=== PATIENT | female | born 1940 | race Caucasian/White ===

== ENCOUNTER → 2017-07-27 11:02 | Outpatient (CLI) | payer MEDICARE, OTHER, SELFPAY ==
--- NOTE | 2017-07-27 | DI.US.S_ITS ---
PROCEDURE: US THYROID INDICATIONS: left thyroid nodule follow up TECHNIQUE: Real-time scanning was performed of the thyroid gland, with image documentation. COMPARISON: [facility], US, US GUIDED BX THYROID (FNA), 08/30/2016, 13:06. [facility], US, THYROID, 07/19/2016, 15:54. FINDINGS: Right: Thyroid lobe measures 3.9 x 1.3 1.1 cm, and is homogeneous in echotexture. Left: Thyroid lobe measures 5.0 x 2.3 x 2.4 cm, and is homogenous in echotexture. Isthmus: 2.0 mm thick. Nodule number: 1 Location: Right superior Size: 0.7 0.5 x 0.6 cm. Composition: Solid Echogenicity: Hypoechoic Shape: wider than tall. Margins: Smooth Echogenic foci: None Total points: 4 ACR TI-RADS category: Moderately suspicious Nodule number: 2 Location: Right inferior Size: 1.2 x 0.7 x 0.9 cm increased in size from prior exam. Composition: Solid Echogenicity: Hypoechoic Shape: Taller than wide Margins: Smooth Echogenic foci: None Total points: 7 ACR TI-RADS category: Highly suspicious Nodule number: 3 Location: Left superior Size: 0.7 x 0.5 x 1.2 cm. Composition: Solid Echogenicity: Isoechoic Shape: wider than tall. Margins: Smooth Echogenic foci: None Total points: 4 ACR TI-RADS category: Moderately suspicious Nodule number 4 Location: Left inferior Size: Unchanged measuring 2.6 x 2.3 x 3.8 cm Composition: Solid Echogenicity: Hypoechoic Shape: wider than tall. Margins: Smooth Echogenic foci: None Total points: 4 ACR TI-RADS category: Moderately suspicious IMPRESSION: Interval increase in size of the # 2 nodule within the right inferior thyroid which is highly suspicious given the sonographic characteristics. Recommend sonographically directed fine needle aspiration. Stable appearance of the additional nodules and a new subcentimeter nodule within the right thyroid is present. Continued sonographic followup recommended. ACR TI-RADS definitions and recommendations: TI-RADS 1 (benign): 0 points. FNA not needed. TI-RADS 2 (not suspicious): 2 points. FNA not needed. TI-RADS 3 (mildly suspicious): 3 points. * FNA if 2.5 cm or larger, follow up if 1.5 cm or larger (at 1, 3, and 5 years). TI-RADS 4 (moderately suspicious): 4-6 points. * FNA if 1.5 cm or larger, follow up if 1 cm or larger (at 1, 2, 3, and 5 years). TI-RADS 5 (highly suspicious): 7 points or more. * FNA if 1 cm or larger, follow up if 0.5 cm or larger (every year for 5 years). Dictated by: Saud Lora [facility] Interpreted: Domenico Griffith MD on 07/27/2017 at 15:40 Approved by: Domenico Griffith M.D. on 07/27/2017 at 16:43
== END ==
PROVIDERS: PCP Family Medicine; Visit Provider Family Medicine
DX: E04.2 Nontoxic multinodular goiter (principal)
CPT/HCPCS: 76536

== ENCOUNTER → 2017-08-15 13:46 | Outpatient (CLI) | payer MEDICARE, OTHER, SELFPAY ==
--- NOTE | 2017-08-15 | DI.US.S_ITS ---
PROCEDURE: US FINE NEEDLE ASPIRATION INDICATIONS: highly suspicious thyroid nodule TECHNIQUE: The indications, alternatives, benefits, risks, and complications of the procedure were explained to the patient. Written informed consent was obtained and placed in the chart. The thyroid region was examined sonographically and a site was chosen for ultrasound guided percutaneous sampling. The skin was prepared and draped in the usual fashion, and anesthetized with 1% lidocaine infiltrated from the skin down to the thyroid gland. Multiple passes were then performed, with contents emptied into an appropriate pathology specimen container. A bandage was applied to the area of access at completion of the study. COMPARISON: None. FINDINGS: Location(s) of lesion(s) sampled: Lower pole right lobe of thyroid [place]: 5 number 25 gauge hypodermic needles and 2 #22 gauge needles. Number of passes: 7 Medications: 1% lidocaine for local anaesthesia. Complications: None. IMPRESSION: Successful ultrasound-guided thyroid nodule fine needle aspiration, with cytology results pending. Please see chart below for management recommendations based on cytology results. Dresser System ReportingRecommendationsNon-diagnostic* Repeat US-guided FNA, with on-site cytology evaluation if possible. * Repeated non-diagnostic nodules without high suspicion US features: close observation vs surgical consult. * Consider surgery if nodule has high suspicion US features, grows >20% in 2 dimensions on followup, or patient has clinical risk factors for malignancy. Benign* If nodule has high suspicion US features: repeat US and FNA within 12 months. * If nodule has low to intermediate suspicion US features: repeat US at 12-24 months. If nodule grows (20% increase in at least 2 dimensions, with minimal increase of 2 mm or >50% change in volume), or development of new suspicious US features, then repeat FNA or continue followup. * If nodule has very low suspicion US features: followup US at >24 months. Atypia of undetermined significance, follicular lesion of undetermined significanceRepeat FNA, molecular testing, followup US, or surgical consult.Follicular neoplasm, suspicious for follicular neoplasmSurgical consult; also consider molecular testing. Suspicious for malignancySurgical consult.MalignantSurgical consult. Dictated by: Bhanu Sadler M.D. on 08/15/2017 at 15:29 Approved by: Bhanu Sadler M.D. on 08/15/2017 at 15:33
--- NOTE | 2017-08-15 | PATH_ITS ---
Note [facility] Accession Number: [id number] TESTS RESULT FLAG UNITS REF RANGE LAB Clinician Provided Cytology Information No. of containers..01 ThinPrep Vial No. of containers..10 Previously Prepared Cytology Slide RIGHT THYROID NODULE DIAGNOSIS: RIGHT THYROID NODULE: BENIGN. BETHESDA CATEGORY II. SPECIMEN CONSISTS OF BENIGN FOLLICULAR CELLS, HEMOSIDERIN-LADEN MACROPHAGES, COLLOID, AND BLOOD. THIS PATTERN IS CONSISTENT WITH A BENIGN FOLLICULAR NODULE. Pathologist ICD10: 02 E04.1 Brenda Pope MD, Pathologist NPI- [id number] Aric Mcqueen, Renal Social Worker ([facility]) 01 30 CC, PINK, CLEAR RECEIVED: 5 ALCOHOL FIXED AND 5 QUICK STAINED SLIDES. /VDU FLAG LEGEND: L-Low Normal,H-High Normal,LL-Alert Low,HH-Alert High <-Panic Low,>-Panic High,A-Abnormal,AA-Critical Abnormal Performed at: 01 =Z [facility] [address], [place] [address] Ryland Kwan MD, 02 [facility] [address] [place] [id number] Jerrod Miller MD, Performed at: 01 [facility] [address], [place], [place] [id number] MD Ryland Kwan MD Phone: [phone]
== END ==
PROVIDERS: Family Provider Family Medicine; PCP Family Medicine; Visit Provider Family Medicine
DX: E04.1 Nontoxic single thyroid nodule (principal)
CPT/HCPCS: 10022; 76942

== ENCOUNTER 2017-09-12 09:45 | Outpatient (RCR) | payer MEDICARE, OTHER, SELFPAY ==
--- NOTE | 2017-06-30 11:02 | PT.OTN ---
Current Diagnoses Weakness (06/30/17) Strain of muscle(s) and tendon(s) of the rotator cuff of left shoulder, initial encounter (06/30/17) Transition note: On June 28, 2017 our therapy services consisting of Speech, Occupational, and Physical Therapy transitioned from the [employer] electronic documentation system to a new [employer] electronic documentation system.?? All documentation prior to June 28 can be found under [employer] saved data. From June 28 forward all medical record documentation will be in [employer] 6.1.
--- NOTE | 2017-06-30 17:42 | PT.OTN ---
Current Diagnoses Weakness (06/30/17) Strain of muscle(s) and tendon(s) of the rotator cuff of left shoulder, initial encounter (06/30/17) Physical Therapy Treatment Note PT-OP-A Visit Information Start: 06/30/17 08:07 Freq: Status: Active Protocol: Activity Type Activity Date Activity User E-Sign Co-Sign Detail Recorded Client Recorded Date Recorded By Document 06/30/17 17:36 [facility] [id number] 06/30/17 17:37 [facility] 06/30/17 17:36 Out-Patient Physical Therapy Visit Information [Visit Information] -Visit Type Treatment Note -Visit Start Time 09:00 -Visit Stop Time 10:00 -Total Visit Minutes 60 -Visit Number 3 -Number of ECONOMICS LECTURER Visits 0 PT-OP-C Subjective Start: 06/30/17 08:07 Freq: Status: Active Protocol: Activity Type Activity Date Activity User E-Sign Co-Sign Detail Recorded Client Recorded Date Recorded By Document 06/30/17 09:01 [facility] [id number] 06/30/17 09:26 [facility] 06/30/17 09:01 OP-PT Subjective [Patient Comments] -Patient Comments shoulder pain for rest of day after first treatment session, though neck pain better with now no pain down UE. OP-PT Pain Assessment [Home Pain Medication Use] -Pain Medications Used Yes -Home Pain Medication Frequency occasional; took after last session PT-OP-Q Treatments Start: 06/30/17 08:07 Freq: Status: Active Protocol: Activity Type Activity Date Activity User E-Sign Co-Sign Detail Recorded Client Recorded Date Recorded By Document 06/30/17 10:58 [facility] [id number] 06/30/17 11:03 [facility] 06/30/17 10:58 Therapeutic Exercises [Sitting Exercises] 1 -Sitting Exercise Name pulleys for shoulder flex and ab -Side left -Reps/Minutes 20x [Standing Exercises] 3 -Standing Exercise Name UT and levator stretch -Reps/Minutes 2x ea 2 -Standing Exercise Name postural isometric, -Side bilateral -Equipment Used wall -Reps/Minutes 5x 1 -Standing Exercise Name rows, shld ext, shld ER -Side bilateral -Equipment Used L1 TB -Reps/Minutes 10x ea -Comments manual cues for scapular mobility and stabilization Manual Therapy Treatment [Soft Tissue Mobilization] 1 -Body Location c/s, UT -Mobilization Type Rolling -Intensity/Depth Moderate -Body Position Supine Self-Care/Home Management Treatment [Education] -Patient Education Home Exercise Program -Other Education updated PT-OP-R Modalities Start: 06/30/17 08:07 Freq: Status: Active Protocol: Activity Type Activity Date Activity User E-Sign Co-Sign Detail Recorded Client Recorded Date Recorded By Document 06/30/17 17:33 [facility] [id number] 06/30/17 17:35 [facility] 06/30/17 17:33 Electric Stimulation [Electric Stimulation] Interferential Current (IFC) -Body Location left shoulder -Duration (Minutes) 15 -Target/Sweep Sweep -Patient Position Supine -Combined With Heat/Cold Cold Pack Ultrasound Therapy [Treatment] Left Shoulder -Treatment Duration (minutes) 8 -Patient Position Supine -Coupling Medium Ultrasound Gel -Mode Setting Continuous -Intensity Setting (w/cm2) 1.2 -Patient Tolerance Good PT-OP-T Assessment and Plan Start: 06/30/17 08:07 Freq: Status: Active Protocol: Activity Type Activity Date Activity User E-Sign Co-Sign Detail Recorded Client Recorded Date Recorded By Document 06/30/17 17:36 [facility] [id number] 06/30/17 17:37 [facility] 06/30/17 17:36 Physical Therapy Assessment [Progress Towards Goals] -Progress Towards Goals Progressing Toward Goals Physical Therapy Plan [Next Visit Focus/Plan] -Next Visit Plan Progression of ther ex for ROM and strengthening left shoulder as tolerated, manual therapy and modalities for ROM, joint mobility, and pain management .
--- NOTE | 2017-07-04 15:40 | PT.OTN ---
Current Diagnoses Weakness (07/04/17) Strain of muscle(s) and tendon(s) of the rotator cuff of left shoulder, initial encounter (07/04/17) Physical Therapy Treatment Note PT-OP-A Visit Information Start: 06/30/17 08:07 Freq: Status: Active Protocol: Activity Type Activity Date Activity User E-Sign Co-Sign Detail Recorded Client Recorded Date Recorded By Document 07/04/17 14:37 [facility] [id number] 07/04/17 14:37 [facility] 07/04/17 14:37 Out-Patient Physical Therapy Visit Information [Visit Information] -Visit Type Treatment Note -Visit Start Time 08:15 -Visit Stop Time 09:10 -Total Visit Minutes 55 -Visit Number 4 -Number of FORMULATOR COMPOUNDER Visits 0 PT-OP-C Subjective Start: 06/30/17 08:07 Freq: Status: Active Protocol: Activity Type Activity Date Activity User E-Sign Co-Sign Detail Recorded Client Recorded Date Recorded By Document 07/04/17 08:15 [facility] [id number] 07/04/17 08:20 [facility] 07/04/17 08:15 OP-PT Subjective [Patient Comments] -Patient Comments Tired and sore after PT. PT-OP-Q Treatments Start: 06/30/17 08:07 Freq: Status: Active Protocol: Activity Type Activity Date Activity User E-Sign Co-Sign Detail Recorded Client Recorded Date Recorded By Document 07/04/17 08:23 [facility] [id number] 07/04/17 09:08 [facility] 07/04/17 08:23 Therapeutic Exercises [Supine Exercises] 1 -Supine Exercise Name should ER/IR AAROM -Reps/Minutes 10x [Prone Exercises] 1 -Prone Exercise Name shoulder flex, chest press, serratus punch -Equipment Used wand -Reps/Minutes 10x -Comments supine [Sidelying Exercises] 1 -Sidelying Exercise Name reach and roll with manual overpressure -Comments painful left [Sitting Exercises] 1 -Sitting Exercise Name pulleys for shoulder flex and ab -Side left -Reps/Minutes 20x [Standing Exercises] 3 -Standing Exercise Name UT and levator stretch -Reps/Minutes 2x ea 1 -Standing Exercise Name rows, shld ext, shld ER, shld add -Side bilateral -Equipment Used L1 TB -Reps/Minutes 10x ea -Comments manual cues for scapular mobility and stabilization Manual Therapy Treatment [Manual Techniques] 2 -Body Location Inf and post glide GH -Body Position Supine -Reps/Duration 5 min 1 -Type STM c/s, upper traps, levator, rhomboids -Body Position Supine -Reps/Duration 6 min PT-OP-R Modalities Start: 06/30/17 08:07 Freq: Status: Active Protocol: Activity Type Activity Date Activity User E-Sign Co-Sign Detail Recorded Client Recorded Date Recorded By Document 07/04/17 15:35 [facility] [id number] 07/04/17 15:37 [facility] 07/04/17 15:35 Electric Stimulation [Electric Stimulation] Interferential Current (IFC) -Body Location left shoulder -Duration (Minutes) 15 -Target/Sweep Sweep -Patient Position Supine -Combined With Heat/Cold Hot Pack -Comments Moist heat c/s, left shoulder PT-OP-T Assessment and Plan Start: 06/30/17 08:07 Freq: Status: Active Protocol: Activity Type Activity Date Activity User E-Sign Co-Sign Detail Recorded Client Recorded Date Recorded By Document 07/04/17 15:38 [facility] [id number] 07/04/17 15:39 [facility] 07/04/17 15:38 Physical Therapy Assessment [Progress Towards Goals] -Progress Towards Goals Progressing Toward Goals -Progress Comments Compliant to HEP. Improved shoulder ER ROM . Progressed HEP. Physical Therapy Plan [Next Visit Focus/Plan] -Next Visit Plan Continue PT with emphasis on pain management, gentle RC strengthening, manual techniques.
--- NOTE | 2017-07-08 16:13 | PT.OTN ---
Current Diagnoses Weakness (07/11/17) Strain of muscle(s) and tendon(s) of the rotator cuff of left shoulder, initial encounter (07/11/17) Physical Therapy Treatment Note PT-OP-A Visit Information Start: 06/30/17 08:07 Freq: Status: Active Protocol: Document 07/08/17 16:15 [facility] (Rec: 07/11/17 14:29 [facility] [id number]) Out-Patient Physical Therapy Visit Information Visit Information Visit Start Time 15:15 Visit Stop Time 16:15 Total Visit Minutes 60 Visit Number 5 Number of SALES EXHIBITOR Visits 0 PT-OP-C Subjective Start: 06/30/17 08:07 Freq: Status: Active Protocol: Document 07/08/17 16:15 [facility] (Rec: 07/11/17 14:29 [facility] [id number]) OP-PT Subjective Patient Comments Patient Comments Overall improving, though c/o left sided neck tightness PT-OP-Q Treatments Start: 06/30/17 08:07 Freq: Status: Active Protocol: Document 07/08/17 16:15 [facility] (Rec: 07/11/17 14:29 [facility] [id number]) Therapeutic Exercises Supine Exercises 3 Supine Exercise Name shoulder ER AAROM 2 Supine Exercise Name serratus punch 1 Supine Exercise Name chest press with wand Side bilateral Reps/Minutes 10x Sidelying Exercises 2 Sidelying Exercise Name shoulder abd 1 Sidelying Exercise Name reach and roll Reps/Minutes 5x Sitting Exercises 1 Sitting Exercise Name pulleys for shoulder flex and abd Reps/Minutes 5' Standing Exercises 2 Standing Exercise Name shoulder ext, row, shld IR, ER Equipment Used L1 TB Reps/Minutes 10 Manual Therapy Treatment Soft Tissue Mobilization 1 Body Location left GH joint, scapular region Mobilization Type Strumming Intensity/Depth Moderate Body Position Supine Joint Mobilizations 2 Joint scapular med and lateral glide Grade II Body Position Sidelying 1 Joint GH inf glide, post glide Grade II Body Position Supine Taping 1 Body Location left upper trap for inhibition Type of Tape Kinesio Tape Manual Techniques 1 Type STM Body Location cervical spine, GH joint, scapulothoracic joint Body Position supine and sidelying Reps/Duration 12 min PT-OP-R Modalities Start: 06/30/17 08:07 Freq: Status: Active Protocol: Document 07/08/17 16:15 [facility]AK (Rec: 07/11/17 14:29 [facility] [id number]) Electric Stimulation Electric Stimulation Interferential Current (IFC) Body Location left shoulder Duration (Minutes) 15 Target/Sweep Sweep Patient Position Supine Combined With Heat/Cold Hot Pack Comments Moist heat c/s, left shoulder Ultrasound Therapy Treatment Left Shoulder Treatment Duration (minutes) 8 Patient Position Supine Coupling Medium Ultrasound Gel Frequency Setting (mHz) 1 Mode Setting Continuous Intensity Setting (w/cm2) 1.2 Patient Tolerance Good PT-OP-T Assessment and Plan Start: 06/30/17 08:07 Freq: Status: Active Protocol: Document 07/08/17 16:15 [facility] (Rec: 07/11/17 14:29 [facility] [id number]) Physical Therapy Assessment Progress Towards Goals Progress Towards Goals Progressing Toward Goals Assessment Summary Assessment Good progress, increased exercise and activity tolerance Physical Therapy Plan Next Visit Focus/Plan Next Visit Plan Progression of PT with emphasis on pain management, gentle RC strengthening, manual techniques.
--- NOTE | 2017-07-11 15:19 | PT.OTN ---
Current Diagnoses Weakness (07/11/17) Strain of muscle(s) and tendon(s) of the rotator cuff of left shoulder, initial encounter (07/11/17) Physical Therapy Treatment Note PT-OP-A Visit Information Start: 06/30/17 08:07 Freq: Status: Active Protocol: Document 07/08/17 16:15 [facility]AK (Rec: 07/11/17 14:29 [facility] [id number]) Out-Patient Physical Therapy Visit Information Visit Information Visit Start Time 15:15 Visit Stop Time 16:15 Total Visit Minutes 60 Visit Number 5 Number of EVENT PRODUCER Visits 0 PT-OP-C Subjective Start: 06/30/17 08:07 Freq: Status: Active Protocol: Document 07/08/17 16:15 [facility]AK (Rec: 07/11/17 14:29 [facility] [id number]) OP-PT Subjective Patient Comments Patient Comments Overall improving, though c/o left sided neck tightness PT-OP-Q Treatments Start: 06/30/17 08:07 Freq: Status: Active Protocol: Document 07/08/17 16:15 [facility] (Rec: 07/11/17 14:29 [facility] [id number]) Manual Therapy Treatment Manual Techniques 1 Type STM Body Location cervical spine, GH joint, scapulothoracic joint Body Position supine and sidelying Reps/Duration 12 min PT-OP-R Modalities Start: 06/30/17 08:07 Freq: Status: Active Protocol: Document 07/08/17 16:15 [facility] (Rec: 07/11/17 14:29 [facility] [id number]) Electric Stimulation Electric Stimulation Interferential Current (IFC) Body Location left shoulder Duration (Minutes) 15 Target/Sweep Sweep Patient Position Supine Combined With Heat/Cold Hot Pack Comments Moist heat c/s, left shoulder Ultrasound Therapy Treatment Left Shoulder Treatment Duration (minutes) 8 Patient Position Supine Coupling Medium Ultrasound Gel Frequency Setting (mHz) 1 Mode Setting Continuous Intensity Setting (w/cm2) 1.2 Patient Tolerance Good PT-OP-T Assessment and Plan Start: 06/30/17 08:07 Freq: Status: Active Protocol: Document 07/08/17 16:15 [facility] (Rec: 07/11/17 14:29 [facility] [id number]) Physical Therapy Plan Next Visit Focus/Plan Next Visit Plan Progression of PT with emphasis on pain management, gentle RC strengthening, manual techniques.
--- NOTE | 2017-07-11 16:23 | PT.OTN ---
Current Diagnoses Weakness (07/11/17) Strain of muscle(s) and tendon(s) of the rotator cuff of left shoulder, initial encounter (07/11/17) Physical Therapy Treatment Note PT-OP-A Visit Information Start: 06/30/17 08:07 Freq: Status: Active Protocol: Document 07/11/17 16:15 [facility] (Rec: 07/11/17 16:23 [facility] [id number]) Out-Patient Physical Therapy Visit Information Visit Information Visit Start Time 15:15 Visit Stop Time 16:15 Total Visit Minutes 60 Visit Number 6 Number of IMPROVEMENT LEADER Visits 0 PT-OP-C Subjective Start: 06/30/17 08:07 Freq: Status: Active Protocol: Document 07/11/17 16:15 [facility] (Rec: 07/11/17 16:23 [facility] [id number]) OP-PT Subjective Patient Comments Patient Comments Reports was sore after last PT session, requests ice after PT today. REport she feels she is progressing. PT-OP-Q Treatments Start: 06/30/17 08:07 Freq: Status: Active Protocol: Document 07/11/17 16:15 [facility] (Rec: 07/11/17 16:23 [facility] [id number]) Therapeutic Exercises Supine Exercises 3 Supine Exercise Name shoulder ER AAROM 2 Supine Exercise Name serratus punch 1 Supine Exercise Name chest press with wand Side bilateral Reps/Minutes 10x Sidelying Exercises 2 Sidelying Exercise Name shoulder abd Side bilateral Reps/Minutes 5x Comments AAROM 1 Sidelying Exercise Name reach and roll Reps/Minutes 5x Sitting Exercises 1 Sitting Exercise Name pulleys for shoulder flex and abd Reps/Minutes 5' Standing Exercises 2 Standing Exercise Name shoulder ext, row, shld IR, ER Equipment Used L2 TB Reps/Minutes 10 1 Standing Exercise Name postural isometric Reps/Minutes 5x Manual Therapy Treatment Soft Tissue Mobilization 1 Body Location left GH joint, scapular region Mobilization Type Strumming Intensity/Depth Moderate Body Position Supine Joint Mobilizations 2 Joint scapular med and lateral glide Grade II Body Position Sidelying 1 Joint GH inf glide, post glide Grade II Body Position Supine Taping 1 Comments refused today Manual Techniques 1 Type STM Body Location cervical spine, GH joint, scapulothoracic joint Body Position supine and sidelying Reps/Duration 12 min PT-OP-R Modalities Start: 06/30/17 08:07 Freq: Status: Active Protocol: Document 07/11/17 16:15 [facility] (Rec: 07/11/17 16:23 [facility] [id number]) Electric Stimulation Electric Stimulation Interferential Current (IFC) Body Location left shoulder Duration (Minutes) 15 Target/Sweep Sweep Patient Position Supine Combined With Heat/Cold Cold Pack Ultrasound Therapy Treatment Left Shoulder Treatment Duration (minutes) 8 Patient Position Supine Coupling Medium Ultrasound Gel Frequency Setting (mHz) 1 Mode Setting Continuous Intensity Setting (w/cm2) 1.2 Patient Tolerance Good PT-OP-T Assessment and Plan Start: 06/30/17 08:07 Freq: Status: Active Protocol: Document 07/11/17 16:15 [facility] (Rec: 07/11/17 16:23 [facility] [id number]) Physical Therapy Assessment Assessment Summary Assessment Increased left shoulder ER to 20 deg AAROM from 0 at eval. Improving pain level and activity tolerance left shoulder. Physical Therapy Plan Frequency and Duration Frequency of Treatment 2x/Week Duration of Treatment 3 months Plan of Care Start Date 06/16/17 Plan of Care End Date 09/14/17 Next Visit Focus/Plan Next Visit Plan Add sidelying shoulder ER, emphasis on preventing compensatory movements with active shoulder use.
--- NOTE | 2017-07-19 16:28 | PT.OTN ---
Current Diagnoses Weakness (07/19/17) Strain of muscle(s) and tendon(s) of the rotator cuff of left shoulder, initial encounter (07/19/17) Physical Therapy Treatment Note PT-OP-A Visit Information Start: 06/30/17 08:07 Freq: Status: Active Protocol: Document 07/19/17 15:15 [facility] (Rec: 07/19/17 16:28 [facility] [id number]) Out-Patient Physical Therapy Visit Information Visit Information Visit Type Treatment Note Visit Start Time 15:15 Visit Stop Time 16:15 Total Visit Minutes 60 Visit Number 7/10 Number of MOLDER BENCH Visits 0 PT-OP-C Subjective Start: 06/30/17 08:07 Freq: Status: Active Protocol: Document 07/19/17 15:15 [facility] (Rec: 07/19/17 16:28 [facility] [id number]) OP-PT Subjective Patient Comments Patient Comments Pain decreased; I feel like I 've made a lot of progress. PT-OP-Q Treatments Start: 06/30/17 08:07 Freq: Status: Active Protocol: Document 07/19/17 15:15 [facility] (Rec: 07/19/17 16:28 [facility] [id number]) Therapeutic Exercises Supine Exercises 3 Supine Exercise Name shoulder ER AAROM 2 Supine Exercise Name serratus punch 1 Supine Exercise Name chest press with wand Side bilateral Reps/Minutes 10x Sidelying Exercises 2 Sidelying Exercise Name shoulder abd Side bilateral Reps/Minutes 5x Comments AAROM 1 Sidelying Exercise Name reach and roll Reps/Minutes 5x Sitting Exercises 2 Sitting Exercise Name lat pull Side bilateral Resistance 10 1 Sitting Exercise Name pulleys for shoulder flex and abd Reps/Minutes 5' Standing Exercises 1 Standing Exercise Name postural isometric Reps/Minutes 5x Manual Therapy Treatment Joint Mobilizations 2 Joint scapular med and lateral glide Grade II Body Position Sidelying 1 Joint GH inf glide, post glide Grade II Body Position Supine PT-OP-R Modalities Start: 06/30/17 08:07 Freq: Status: Active Protocol: Document 07/19/17 15:15 [facility] (Rec: 07/19/17 16:28 [facility] [id number]) Electric Stimulation Electric Stimulation Interferential Current (IFC) Body Location left shoulder Duration (Minutes) 15 Target/Sweep Sweep Patient Position Supine Combined With Heat/Cold Hot Pack Ultrasound Therapy Treatment Left Shoulder Treatment Duration (minutes) 8 Patient Position Supine Coupling Medium Ultrasound Gel Frequency Setting (mHz) 1 Mode Setting Continuous Intensity Setting (w/cm2) 1.2 Patient Tolerance Good PT-OP-T Assessment and Plan Start: 06/30/17 08:07 Freq: Status: Active Protocol: Document 07/19/17 15:15 [facility] (Rec: 07/19/17 16:28 [facility] [id number]) Physical Therapy Assessment Progress Towards Goals Progress Towards Goals Progressing Toward Goals Assessment Summary Assessment shoulder ER AAROm 25 today. Physical Therapy Plan Frequency and Duration Frequency of Treatment 2x/Week Duration of Treatment 3 months Plan of Care Start Date 06/16/17 Next Visit Focus/Plan Next Visit Plan Add sidelying shoulder ER, emphasis on preventing compensatory movements with active shoulder use. Please Sign and Return: I have reviewed this Plan of Care and certify that the skilled therapy services above are required to meet the patient???s needs. Physician Signature Date Printed Name and Credentials Clinical Instructor Signature Printed Name and Credentials
--- NOTE | 2017-07-22 16:03 | PT.OTN ---
Current Diagnoses Weakness (07/22/17) Strain of muscle(s) and tendon(s) of the rotator cuff of left shoulder, initial encounter (07/22/17) Physical Therapy Treatment Note PT-OP-A Visit Information Start: 06/30/17 08:07 Freq: Status: Active Protocol: Document 07/22/17 08:14 [facility] (Rec: 07/22/17 09:05 [facility] [id number]) Out-Patient Physical Therapy Visit Information Visit Information Visit Type Treatment Note Visit Start Time 08:14 Visit Stop Time 09:14 Total Visit Minutes 60 Visit Number 8/10 Number of ICU NURSE Visits 0 PT-OP-C Subjective Start: 06/30/17 08:07 Freq: Status: Active Protocol: Document 07/22/17 08:14 [facility] (Rec: 07/22/17 09:05 [facility] [id number]) OP-PT Subjective Patient Comments Patient Comments Tired but no increase in pain PT-OP-Q Treatments Start: 06/30/17 08:07 Freq: Status: Active Protocol: Document 07/22/17 08:14 [facility] (Rec: 07/22/17 09:05 [facility] [id number]) Cardio Equipment Upper Body Ergometer (UBE) Duration (Minutes) 4 RPM 120 Therapeutic Exercises Supine Exercises 3 Supine Exercise Name shoulder ER AAROM Reps/Minutes 3 min 2 Supine Exercise Name serratus punch Reps/Minutes 10 1 Supine Exercise Name chest press with wand Side bilateral Reps/Minutes 10x Sidelying Exercises 3 Sidelying Exercise Name scapular clocks with MR Reps/Minutes 10 2 Sidelying Exercise Name shoulder abd Side bilateral Reps/Minutes 5x Comments AAROM 1 Sidelying Exercise Name reach and roll Reps/Minutes 5x Sitting Exercises 2 Sitting Exercise Name lat pull Side bilateral Resistance 10 1 Sitting Exercise Name pulleys for shoulder flex and abd Reps/Minutes 5' Manual Therapy Treatment Soft Tissue Mobilization 1 Body Location left GH joint, scapular region Mobilization Type Strumming Intensity/Depth Moderate Body Position Supine Joint Mobilizations 2 Joint scapular med and lateral glide Grade II Body Position Sidelying PT-OP-R Modalities Start: 06/30/17 08:07 Freq: Status: Active Protocol: Document 07/22/17 08:14 [facility] (Rec: 07/22/17 16:03 [facility] [id number]) Electric Stimulation Electric Stimulation Interferential Current (IFC) Body Location left shoulder Duration (Minutes) 15 Target/Sweep Sweep Patient Position Supine Combined With Heat/Cold Hot Pack Ultrasound Therapy Treatment Left Shoulder Treatment Duration (minutes) 8 Patient Position Supine Coupling Medium Ultrasound Gel Frequency Setting (mHz) 1 Mode Setting Continuous Intensity Setting (w/cm2) 1.2 Patient Tolerance Good PT-OP-T Assessment and Plan Start: 06/30/17 08:07 Freq: Status: Active Protocol: Document 07/22/17 08:14 [facility] (Rec: 07/22/17 16:03 [facility] [id number]) Physical Therapy Assessment Progress Towards Goals Progress Towards Goals Progressing Toward Goals Assessment Summary Assessment ER AAROM 29 Physical Therapy Plan Frequency and Duration Frequency of Treatment 2x/Week Duration of Treatment 3 months Plan of Care Start Date 06/16/17 Plan of Care End Date 09/14/17 Next Visit Focus/Plan Next Note Type Treatment Note Next Visit Plan Add sidelying shoulder ER, emphasis on preventing compensatory movements with active shoulder use. Please Sign and Return: I have reviewed this Plan of Care and certify that the skilled therapy services above are required to meet the patient???s needs. Physician Signature Date Printed Name and Credentials Clinical Instructor Signature Printed Name and Credentials
--- NOTE | 2017-07-27 16:15 | PT.OTN ---
Current Diagnoses Weakness (07/27/17) Strain of muscle(s) and tendon(s) of the rotator cuff of left shoulder, initial encounter (07/27/17) Physical Therapy Treatment Note PT-OP-A Visit Information Start: 06/30/17 08:07 Freq: Status: Active Protocol: Document 07/27/17 15:15 SAK (Rec: 07/27/17 15:32 SAK [id number]) Out-Patient Physical Therapy Visit Information Visit Information Visit Type Treatment Note Visit Start Time 15:15 Visit Stop Time 16:15 Total Visit Minutes 60 Visit Number 9/10 Number of TIRE MAKER Visits 0 PT-OP-C Subjective Start: 06/30/17 08:07 Freq: Status: Active Protocol: Document 07/27/17 15:15 SAK (Rec: 07/27/17 15:32 SAK [id number]) OP-PT Subjective Patient Comments Patient Comments Continues to do better, pleased with progress. Patient Reported Progress Improving PT-OP-Q Treatments Start: 06/30/17 08:07 Freq: Status: Active Protocol: Document 07/27/17 15:15 SAK (Rec: 07/27/17 15:32 SAK [id number]) Cardio Equipment Upper Body Ergometer (UBE) Duration (Minutes) 6 RPM 120 Therapeutic Exercises Supine Exercises 3 Supine Exercise Name shoulder ER AAROM Reps/Minutes 3 min 2 Supine Exercise Name serratus punch Reps/Minutes 10 1 Supine Exercise Name chest press with wand Side bilateral Reps/Minutes 10x Sidelying Exercises 4 Sidelying Exercise Name shoulder ER Side left Reps/Minutes 10x 3 Sidelying Exercise Name scapular clocks with MR Reps/Minutes 10 2 Sidelying Exercise Name shoulder abd Side bilateral Reps/Minutes 5x Comments AAROM 1 Sidelying Exercise Name reach and roll Reps/Minutes 5x Comments manual overpressure Sitting Exercises 2 Sitting Exercise Name lat pull Side bilateral Resistance 10 1 Sitting Exercise Name pulleys for shoulder flex and abd Reps/Minutes 5' Manual Therapy Treatment Soft Tissue Mobilization 1 Body Location left GH joint, scapular region Mobilization Type Strumming Intensity/Depth Moderate Body Position Supine Joint Mobilizations 2 Joint scapular med and lateral glide Grade II Body Position Sidelying PT-OP-R Modalities Start: 06/30/17 08:07 Freq: Status: Active Protocol: Document 07/27/17 15:15 SAK (Rec: 07/27/17 16:14 SAK [id number]) Electric Stimulation Electric Stimulation Interferential Current (IFC) Body Location left shoulder Duration (Minutes) 15 Target/Sweep Sweep Patient Position Supine Combined With Heat/Cold Hot Pack Ultrasound Therapy Treatment Left Shoulder Treatment Duration (minutes) 8 Patient Position Supine Coupling Medium Ultrasound Gel Frequency Setting (mHz) 1 Mode Setting Continuous Intensity Setting (w/cm2) 1.2 Patient Tolerance Good PT-OP-T Assessment and Plan Start: 06/30/17 08:07 Freq: Status: Active Protocol: Document 07/27/17 15:15 AVRIL (Rec: 07/27/17 16:14 SAK [id number]) Physical Therapy Assessment Progress Towards Goals Progress Towards Goals Progressing Toward Goals Progress Comments Good compliance to HEP Physical Therapy Plan Frequency and Duration Frequency of Treatment 2x/Week Duration of Treatment 3 months Plan of Care Start Date 06/16/17 Plan of Care End Date 09/14/17 Next Visit Focus/Plan Next Note Type Progress Note Please Sign and Return: I have reviewed this Plan of Care and certify that the skilled therapy services above are required to meet the patient???s needs. Physician Signature Date Printed Name and Credentials Clinical Instructor Signature Printed Name and Credentials
--- NOTE | 2017-07-29 16:21 | PT.OTN ---
Current Diagnoses Weakness (07/29/17) Strain of muscle(s) and tendon(s) of the rotator cuff of left shoulder, initial encounter (07/29/17) Physical Therapy Treatment Note PT-OP-A Visit Information Start: 06/30/17 08:07 Freq: Status: Active Protocol: Document 07/29/17 16:14 SAK (Rec: 07/29/17 16:21 [facility] [id number]) Out-Patient Physical Therapy Visit Information Visit Information Visit Type Treatment Note Visit Start Time 15:15 Visit Stop Time 16:15 Total Visit Minutes 60 Visit Number 10/10 Number of COMMUNICATION ASSISTANT Visits 0 PT-OP-C Subjective Start: 06/30/17 08:07 Freq: Status: Active Protocol: Document 07/29/17 16:14 SAK (Rec: 07/29/17 16:21 [facility] [id number]) OP-PT Subjective Patient Comments Patient Comments No new c/o. Improving activity tolerance with left UE. Patient Reported Progress Improving PT-OP-Q Treatments Start: 06/30/17 08:07 Freq: Status: Active Protocol: Document 07/29/17 16:14 SAK (Rec: 07/29/17 16:21 [facility] [id number]) Cardio Equipment Upper Body Ergometer (UBE) Duration (Minutes) 6 RPM 120 Therapeutic Exercises Supine Exercises 3 Supine Exercise Name shoulder ER AAROM Reps/Minutes 3 min 2 Supine Exercise Name serratus punch Resistance 1# Reps/Minutes 10 Sidelying Exercises 4 Sidelying Exercise Name shoulder ER Side left Reps/Minutes 10x 3 Sidelying Exercise Name scapular clocks with MR Reps/Minutes 10 2 Sidelying Exercise Name shoulder abd Side bilateral Reps/Minutes 5x Comments AAROM 1 Sidelying Exercise Name reach and roll Reps/Minutes 5x Comments manual overpressure Sitting Exercises 2 Sitting Exercise Name lat pull Side bilateral Resistance 10 Reps/Minutes 10x2 1 Sitting Exercise Name pulleys for shoulder flex and abd Reps/Minutes 5' Manual Therapy Treatment Soft Tissue Mobilization 1 Body Location left GH joint, scapular region Mobilization Type Strumming Intensity/Depth Moderate Body Position Supine Joint Mobilizations 2 Joint scapular med and lateral glide Grade II Body Position Sidelying 1 Joint GH inf glide, post glide Grade II Body Position Supine Manual Techniques 1 Type STM Body Location cervical spine, GH joint, scapulothoracic joint Body Position supine and sidelying Reps/Duration 12 min PT-OP-R Modalities Start: 06/30/17 08:07 Freq: Status: Active Protocol: Document 07/29/17 16:14 AVRIL (Rec: 07/29/17 16:21 [facility] [id number]) Electric Stimulation Electric Stimulation Interferential Current (IFC) Body Location left shoulder Duration (Minutes) 15 Target/Sweep Sweep Patient Position Supine Combined With Heat/Cold Hot Pack Ultrasound Therapy Treatment Left Shoulder Treatment Duration (minutes) 8 Patient Position Supine Coupling Medium Ultrasound Gel Frequency Setting (mHz) 1 Mode Setting Continuous Intensity Setting (w/cm2) 1.2 PT-OP-T Assessment and Plan Start: 06/30/17 08:07 Freq: Status: Active Protocol: Document 07/29/17 16:14 AVRIL (Rec: 07/29/17 16:21 [facility] [id number]) Physical Therapy Assessment Progress Towards Goals Progress Towards Goals Progressing Toward Goals Progress Comments Making good progress in all goal areas; decreased pain, improved shoulder ROM and strength, and increased activity tolerance with left UE. Assessment Summary Assessment ER AAROM 33 Physical Therapy Plan Frequency and Duration Frequency of Treatment 2x/Week Duration of Treatment 3 months Plan of Care Start Date 06/16/17 Plan of Care End Date 09/14/17 Next Visit Focus/Plan Next Note Type Treatment Note Please Sign and Return: I have reviewed this Plan of Care and certify that the skilled therapy services above are required to meet the patient?s needs. Physician Signature Date Printed Name and Credentials Clinical Instructor Signature Printed Name and Credentials
--- NOTE | 2017-07-29 16:21 | PT.OPPN ---
Current Diagnoses Weakness (07/29/17) Strain of muscle(s) and tendon(s) of the rotator cuff of left shoulder, initial encounter (07/29/17) Physical Therapy Progress Note PT-OP-A Visit Information Start: 06/30/17 08:07 Freq: Status: Active Protocol: Document 07/29/17 16:14 [facility] (Rec: 07/29/17 16:21 [facility] [id number]) Out-Patient Physical Therapy Visit Information Visit Information Visit Type Treatment Note Visit Start Time 15:15 Visit Stop Time 16:15 Total Visit Minutes 60 Visit Number 10/ Number of CNC TECHNICIAN Visits 0 PT-OP-C Subjective Start: 06/30/17 08:07 Freq: Status: Active Protocol: Document 07/29/17 16:14 SAK (Rec: 07/29/17 16:21 [facility] [id number]) OP-PT Subjective Patient Comments Patient Comments No new c/o. Improving activity tolerance with left UE. Patient Reported Progress Improving PT-OP-T Assessment and Plan Start: 06/30/17 08:07 Freq: Status: Active Protocol: Document 07/29/17 16:14 [facility] (Rec: 07/29/17 16:21 [facility] [id number]) Physical Therapy Assessment Progress Towards Goals Progress Towards Goals Progressing Toward Goals Progress Comments Making good progress in all goal areas; decreased pain, improved shoulder ROM and strength, and increased activity tolerance with left UE. Assessment Summary Assessment ER AAROM 33 Physical Therapy Plan Frequency and Duration Frequency of Treatment 2x/Week Duration of Treatment 3 months Plan of Care Start Date 06/16/17 Plan of Care End Date 09/14/17 Next Visit Focus/Plan Next Note Type Treatment Note Please Sign and Return: I have reviewed this Plan of Care and certify that the skilled therapy services above are required to meet the patient?s needs. Physician Signature Date Printed Name and Credentials Clinical Instructor Signature Printed Name and Credentials
--- NOTE | 2017-09-05 10:42 | PT.OPPN ---
Current Diagnoses Weakness (09/05/17) Strain of muscle(s) and tendon(s) of the rotator cuff of left shoulder, initial encounter (09/05/17) Physical Therapy Progress Note PT-OP-A Visit Information Start: 06/30/17 08:07 Freq: Status: Active Protocol: Document 09/05/17 09:47 SAK (Rec: 09/05/17 10:08 SAK [id number]) Out-Patient Physical Therapy Visit Information Visit Information Visit Type Treatment Note Visit Start Time 09:45 Visit Stop Time 10:30 Total Visit Minutes 60 Visit Number 01/17 Number of REJECT OPENER AND FILLER Visits 0 PT-OP-C Subjective Start: 06/30/17 08:07 Freq: Status: Active Protocol: Document 09/05/17 09:47 SAK (Rec: 09/05/17 10:08 SAK [id number]) OP-PT Subjective Patient Comments Patient Comments continues to improve, although pain exacerbated by accident while moving boxes; hit back of head and left arm: states seems to be resolving. Patient Reported Progress Improving PT-OP-T Assessment and Plan Start: 06/30/17 08:07 Freq: Status: Active Protocol: Document 07/29/17 16:14 SAK (Rec: 07/29/17 16:21 [facility] [id number]) Physical Therapy Assessment Progress Towards Goals Progress Towards Goals Progressing Toward Goals Progress Comments Making good progress in all goal areas; decreased pain, improved shoulder ROM and strength, and increased activity tolerance with left UE. Assessment Summary Assessment ER AAROM 33 Physical Therapy Plan Frequency and Duration Frequency of Treatment 2x/Week Duration of Treatment 3 months Plan of Care Start Date 06/16/17 Plan of Care End Date 09/14/17 Next Visit Focus/Plan Next Note Type Treatment Note
--- NOTE | 2017-09-05 10:50 | PT.OTN ---
Current Diagnoses Weakness (09/05/17) Strain of muscle(s) and tendon(s) of the rotator cuff of left shoulder, initial encounter (09/05/17) Physical Therapy Treatment Note PT-OP-A Visit Information Start: 06/30/17 08:07 Freq: Status: Active Protocol: Document 09/05/17 09:47 SAK (Rec: 09/05/17 10:08 SAK [id number]) Out-Patient Physical Therapy Visit Information Visit Information Visit Type Treatment Note Visit Start Time 09:45 Visit Stop Time 10:30 Total Visit Minutes 60 Visit Number 01/17 Number of CALENDER LET OFF OPERATOR Visits 0 PT-OP-C Subjective Start: 06/30/17 08:07 Freq: Status: Active Protocol: Document 09/05/17 09:47 SAK (Rec: 09/05/17 10:08 SAK [id number]) OP-PT Subjective Patient Comments Patient Comments continues to improve, although pain exacerbated by accident while moving boxes; hit back of head and left arm: states seems to be resolving. Patient Reported Progress Improving PT-OP-Q Treatments Start: 06/30/17 08:07 Freq: Status: Active Protocol: Document 09/05/17 09:47 SAK (Rec: 09/05/17 10:50 [facility] [id number]) Cardio Equipment Upper Body Ergometer (UBE) Duration (Minutes) 6 RPM 90 Therapeutic Exercises Supine Exercises 3 Supine Exercise Name shoulder ER AAROM Reps/Minutes 3 min Sidelying Exercises 4 Sidelying Exercise Name shoulder ER Side left Reps/Minutes 10x 3 Sidelying Exercise Name scapular clocks with MR Reps/Minutes 10 2 Sidelying Exercise Name shoulder abd Side bilateral Reps/Minutes 5x Comments AAROM 1 Sidelying Exercise Name reach and roll Reps/Minutes 5x Comments manual overpressure Sitting Exercises 1 Sitting Exercise Name pulleys for shoulder flex and abd Reps/Minutes 5' Standing Exercises 2 Standing Exercise Name shoulder ext, row, shld IR, ER Equipment Used L2 TB Reps/Minutes 10 Comments manual facil for scapular movement PT-OP-R Modalities Start: 06/30/17 08:07 Freq: Status: Active Protocol: Document 09/05/17 09:47 SAK (Rec: 09/05/17 10:50 SAK [id number]) Electric Stimulation Electric Stimulation Interferential Current (IFC) Body Location left shoulder Duration (Minutes) 15 Target/Sweep Sweep Patient Position Supine Combined With Heat/Cold Hot Pack Ultrasound Therapy Treatment Left Shoulder Treatment Duration (minutes) 8 Patient Position Supine Coupling Medium Ultrasound Gel Frequency Setting (mHz) 1 Mode Setting Continuous Intensity Setting (w/cm2) 1.2 PT-OP-T Assessment and Plan Start: 06/30/17 08:07 Freq: Status: Active Protocol: Document 09/05/17 09:47 SAK (Rec: 09/05/17 10:50 SAK [id number]) Physical Therapy Assessment Progress Towards Goals Progress Towards Goals Progressing Toward Goals Progress Comments Tolerating increased activity level well, Shoulder ER AAROM 37 degrees Assessment Summary Assessment Patient needs to cancel last scheduled visit; she will let me know if she would like to be discharged or would like to reschedule final visit. Physical Therapy Plan Frequency and Duration Frequency of Treatment 2x/Week Duration of Treatment 3 months Plan of Care Start Date 06/16/17 Plan of Care End Date 09/14/17 Next Visit Focus/Plan Next Note Type Treatment Note Next Visit Plan 1 further visit pending patient decision.
--- NOTE | 2017-09-12 16:57 | PT.OTN ---
Current Diagnoses Weakness (09/12/17) Strain of muscle(s) and tendon(s) of the rotator cuff of left shoulder, initial encounter (09/12/17) Physical Therapy Treatment Note PT-OP-A Visit Information Start: 06/30/17 08:07 Freq: Status: Active Protocol: Document 09/12/17 09:45 SAK (Rec: 09/12/17 16:57 SAK [id number]) Out-Patient Physical Therapy Visit Information Visit Information Visit Type Treatment Note Visit Start Time 09:45 Visit Stop Time 10:30 Total Visit Minutes 60 Visit Number 01/17 Number of PROJECT MANAGEMENT SPECIALIST Visits 0 PT-OP-C Subjective Start: 06/30/17 08:07 Freq: Status: Active Protocol: Document 09/12/17 09:45 SAK (Rec: 09/12/17 16:57 SAK [id number]) OP-PT Subjective Patient Comments Patient Comments Patient reports feels ready for discharge after today's visit. Minimal to no pain. Independent with exercises. Patient Reported Progress Improving PT-OP-Q Treatments Start: 06/30/17 08:07 Freq: Status: Active Protocol: Document 09/12/17 09:45 SAK (Rec: 09/12/17 16:57 SAK [id number]) Cardio Equipment Upper Body Ergometer (UBE) Duration (Minutes) 6 RPM 90 Therapeutic Exercises Supine Exercises 3 Supine Exercise Name shoulder ER AAROM Reps/Minutes 3 min Sidelying Exercises 4 Sidelying Exercise Name shoulder ER Side left Reps/Minutes 10x 3 Sidelying Exercise Name scapular clocks with MR Reps/Minutes 10 2 Sidelying Exercise Name shoulder abd Side bilateral Reps/Minutes 5x Comments AAROM 1 Sidelying Exercise Name reach and roll Reps/Minutes 5x Comments manual overpressure Sitting Exercises 1 Sitting Exercise Name pulleys for shoulder flex and abd Reps/Minutes 5' Standing Exercises 2 Standing Exercise Name shoulder ext, row, shld IR, ER Equipment Used L2 TB Reps/Minutes 10 Comments manual facil for scapular movement Manual Therapy Treatment Joint Mobilizations 1 Joint GH inf glide, post glide Grade II Body Position Supine PT-OP-R Modalities Start: 06/30/17 08:07 Freq: Status: Active Protocol: Document 09/12/17 09:45 SAK (Rec: 09/12/17 16:57 SAK [id number]) Electric Stimulation Electric Stimulation Interferential Current (IFC) Body Location left shoulder Duration (Minutes) 15 Target/Sweep Sweep Patient Position Supine Combined With Heat/Cold Hot Pack Ultrasound Therapy Treatment Left Shoulder Treatment Duration (minutes) 8 Patient Position Supine Coupling Medium Ultrasound Gel Frequency Setting (mHz) 1 Mode Setting Continuous Intensity Setting (w/cm2) 1.2 PT-OP-T Assessment and Plan Start: 06/30/17 08:07 Freq: Status: Active Protocol: Document 09/12/17 09:45 [facility] (Rec: 09/12/17 16:57 [facility] [id number]) Physical Therapy Assessment Progress Towards Goals Progress Towards Goals Goals Met Physical Therapy Plan Next Visit Focus/Plan Next Note Type Discharge Summary Next Visit Plan Patient discharged from PT
--- NOTE | 2017-09-12 16:58 | PT.OPDS ---
Current Diagnoses Weakness (09/12/17) Strain of muscle(s) and tendon(s) of the rotator cuff of left shoulder, initial encounter (09/12/17) Provider Visit Care Team Role Provider Type Veronique Haq MD Attending Provider Physician Family Provider Primary Care Provider Specialty: Family Practice Address: [address] [place] [address], [id number] Email: Visit Number Visit Number 01/17 Discharge Summary PT-OP-C Subjective Start: 06/30/17 08:07 Freq: Status: Active Protocol: Document 09/12/17 09:45 SAK (Rec: 09/12/17 16:57 SAK [id number]) OP-PT Subjective Patient Comments Patient Comments Patient reports feels ready for discharge after today's visit. Minimal to no pain. Independent with exercises. Patient Reported Progress Improving PT-OP-T Assessment and Plan Start: 06/30/17 08:07 Freq: Status: Active Protocol: Document 09/12/17 09:45 SAK (Rec: 09/12/17 16:57 SAK [id number]) Physical Therapy Assessment Progress Towards Goals Progress Towards Goals Goals Met Physical Therapy Plan Next Visit Focus/Plan Next Note Type Discharge Summary Next Visit Plan Patient discharged from PT
== END 2018-02-13 11:05 ==
LOC: PHYS 09:45
PROVIDERS: Family Provider Family Medicine; PCP Family Medicine; Visit Provider Family Medicine
DX: S46.012A Strain of muscle(s) and tendon(s) of the rotator cuff of left shoulder, initial encounter (principal); R53.1 Weakness
CPT/HCPCS: 97014; 97035; 97110; 97140; G0283

== ENCOUNTER → 2018-03-22 09:38 | Outpatient (CLI) | payer MEDICARE, OTHER, SELFPAY ==
[2018-03-22 10:56] LABS: Add Manual Diff / Slide Review NO; Basophils Absolute Auto 0 /uL (0-100); Basophils Percent Auto 0.8 % (0-2); Eosinophils Absolute Auto 200 /uL (0-450); Hematocrit 42.8 % (36-46); Hemoglobin 14.4 g/dL (12.0-16.0); Lymphocytes Absolute Auto 1300 /uL (1100-4500); Lymphocytes Percent Auto 23.2 % (25-40); Mean Corpuscular HGB Conc 33.5 % (30-36); Mean Corpuscular Hemoglobin 30.7 PG (26-34); Mean Corpuscular Volume 91.6 fL (80-100); Monocytes Absolute Auto 600 /uL (0-900); Neutrophils Absolute Auto 3400 /uL (1500-7000); Platelet Count 224 X10^3/uL (150-400); Red Blood Cell Count 4.68 X10^6/uL (4.0-5.2); White Blood Cell Count 5.5 X10^3/uL (4.5-11.0)
[2018-03-22 11:16] LABS: Alanine Aminotransferase 24 IU/L (9-52); Albumin 4.6 g/dL (3.5-5.0); Albumin Globulin Ratio 1.5 (1.0-2.8); Alkaline Phosphatase 99 U/L (38-126); Aspartate Aminotransferase 26 IU/L (14-36); BUN Creatinine Ratio 21.7 (6-22); Bilirubin Total 0.8 mg/dL (0.2-1.3); Blood Urea Nitrogen 13 mg/dL (7-17); Calcium 9.7 mg/dL (8.4-10.2); Carbon Dioxide 29 mmol/L (22-32); Chloride 102 mmol/L (98-107); Cholesterol 213 mg/dL (140-199); Estimated Glomerular Filt Rate > 60.0 mL/min (>60); Glucose 89 mg/dL (80-110); HDL Cholesterol 65 mg/dL (40-60); HEMOLYSIS < 15 (0-50); LDL Cholesterol Calculated 132 mg/dL (<100); Potassium 3.8 mmol/L (3.4-5.1); Sodium 140 mmol/L (137-145); Total Protein 7.6 g/dL (6.3-8.2); Triglycerides 79 mg/dL (35-150)
[2018-03-22 11:31] LABS: Vitamin D 25 Hydroxy (D3) 49.5 ng/mL (30.0-100.0)
[2018-03-22 11:33] LABS: Free T3, Triiodothyronine Free 3.62 pg/mL (2.77-5.27); Free T4, Direct Thyroxine 1.61 ng/dL (0.78-2.19)
[2018-03-22 11:46] LABS: Thyroid Stimulating Hormone 0.51 uIU/mL (0.47-4.68)
== END ==
PROVIDERS: Family Provider Family Medicine; PCP Family Medicine; Visit Provider Family Medicine
DX: E03.9 Hypothyroidism, unspecified (principal); E78.00 Pure hypercholesterolemia, unspecified; Z00.00 Encounter for general adult medical examination without abnormal findings; I48.2 Chronic atrial fibrillation; M85.80 Other specified disorders of bone density and structure, unspecified site; E02 Subclinical iodine-deficiency hypothyroidism
CPT/HCPCS: 36415; 80053; 80061; 82306; 82542; 84439; 84443; 84481; 85025

== ENCOUNTER → 2018-05-22 09:30 | Outpatient (CLI) | payer MEDICARE, OTHER, SELFPAY ==
--- NOTE | 2018-05-22 | DI.ECHO.S_ITS ---
[facility] +---------+ : : [address] [place] : : : : [id number] : : : : Phone: [phone]+ Echocardiogram Report + + :Name: MEKA RODRIGUES Study Date: 05/22/2018 Height: 66 in : :[facility] Weight: 167 lb : : Gender: Female BSA: 1.9 m2 : :: 1940 Age: 77 yrs BP: 118/72 mmHg: :Reason For Study: Mitral Valve- Regurgitation : :Ordering Physician: Nicholas : :Sofie Performed By: Carolina Rucker : :Referring: Dr. Veronique Haq : + + Interpretation Summary The ejection fraction is estimated to be 60-65%. The left atrium is severely dilated. There is moderate mitral regurgitation. There is moderate tricuspid regurgitation. The right ventricular systolic pressure is estimated to be at least 37 mmHg based on an estimated right atrial pressure of 3 mm Hg. Compared to the prior echo exam, there has been an increase in TR severity. Compared to the prior echo study, there has been an increase in the severity of mitral regurgitation. Procedure: A two-dimensional transthoracic echocardiogram with color flow and Doppler was performed. The study quality was technically good. Comparison is made with the echocardiogram of 07-04-14. The patient was in normal sinus rhythm during the exam. The patient had occasional PVCs during the exam. Left Ventricle: The left ventricle is normal in size, wall thickness, and systolic function without any focal wall motion abnormalities. The ejection fraction is estimated to be 60-65%. Left ventricular wall motion is normal. Right Ventricle: The right ventricle grossly appears normal in size with probable normal systolic function. Atria: The left atrium is severely dilated. Right atrial size is normal. The interatrial septum is intact with no evidence for an atrial septal defect. Mitral Valve: The mitral valve leaflets appear mildly thickened, but open well. There is mild mitral annular calcification. There is moderate mitral regurgitation. Compared to the prior echo study, there has been an increase in the severity of mitral regurgitation. Aortic Valve: The aortic valve is trileaflet. The aortic valve opens well. No aortic regurgitation is present. Tricuspid Valve: The tricuspid valve leaflets are thin and pliable. There is moderate tricuspid regurgitation. The right ventricular systolic pressure is estimated to be at least 37 mmHg based on an estimated right atrial pressure of 3 mm Hg. Compared to the prior echo exam, there has been an increase in TR severity. Pulmonic Valve: The pulmonic valve is not well visualized. There is a trace or physiologic amount of pulmonic regurgitation. Great Vessels: The aortic root is normal size. The dimensions of the ascending aorta are normal. The aortic arch is normal in size. The IVC is of normal diameter and collapses greater than 50% with a sniff. This suggests a low right atrial pressure of 3 mm Hg. Pericardium/ Pleura There is no pericardial effusion. There is no pleural effusion. MMode/2D Measurements & Calculations LVIDd: 4.8 cm Ao root diam: 3.3 cm LVIDs: 3.0 cm Aortic Jxn: 2.3 cm FS: 37.2 % asc Aorta Diam: 3.3 cm EPSS: 0.48 cm Ao Arch Diam (Prox Trans): 2.5 cm IVSd: 0.90 cm LVPWd: 0.62 cm LV heller. diameter/BSA (cm/m^2): 2.6 LV sys. diameter/BSA (cm/m^2): 1.6 LA dimension: 3.4 cm RA long axis: 5.4 cm LA A2 area: 27.2 cm2 RA area: 19.7 cm2 LA A4 area: 23.1 cm2 RA vol: 61.4 ml LA length (vol): 5.3 cm RA : 33.2 ml/m2 LA vol: 100.1 ml IVC diam: 1.8 cm LA vol index: 54.0 ml/m2 RVDd major: 5.0 cm RVD1 (basal): 3.9 cm RVD2 (mid): 2.8 cm Doppler Measurements & Calculations Ao V2 max: 151.5 cm/sec MV E max ronald: 85.5 cm/sec Ao V2 mean: 94.1 cm/sec MV A max ronald: 87.2 cm/sec Ao max P.2 mmHg MV E/A: 0.98 Ao mean P.4 mmHg Med Peak E' Ronald: 5.9 cm/sec Ao V2 VTI: 32.4 cm E/E' med: 14.5 Lat Peak E' Ronald: 8.1 cm/sec E/E' lat: 10.5 E/e' average: 12.5 MV dec time: 0.23 sec MV P1/2t: 69.3 msec MR ERO: 0.17 cm2 TR max ronald: 291.3 cm/sec MV P1/2t max ronald: 84.2 cm/sec TR max P.9 mmHg MVA(P1/2t): 3.2 cm2 PA V2 max: 69.8 cm/sec PA V2 mean: 39.2 cm/sec PA mean P.79 mmHg PA Accel Time: 0.22 sec MR flow rate: 93.2 cm3/sec MR PISA radius: 0.62 cm Reading Physician:04:14 PM
== END ==
PROVIDERS: Family Provider Allergy & Immunology; PCP Family Medicine; Visit Provider Internal Medicine Cardiovascular Disease
DX: I08.1 Rheumatic disorders of both mitral and tricuspid valves (principal)
CPT/HCPCS: 93306

== ENCOUNTER → 2018-06-16 10:51 | Outpatient (CLI) | payer MEDICARE, OTHER, SELFPAY ==
--- NOTE | 2018-06-16 | DI.MG.S_ITS ---
BILATERAL DIGITAL SCREENING MAMMOGRAM 3D/2D WITH CAD: 06/16/2018 CLINICAL: Routine screening. Family history of breast cancer. Comparison is made to exams dated: 06/15/2017 mammogram, 12/20/2016 mammogram, 06/16/2016 mammogram, 12/04/2015 mammogram, and 06/11/2015 mammogram - [facility]. There are scattered fibroglandular elements in both breasts. Current study was also evaluated with a Computer Aided Detection (CAD) system. No significant masses, calcifications, or other findings are seen in either breast. There has been no significant interval change. IMPRESSION: NEGATIVE There is no mammographic evidence of malignancy. A 1 year screening mammogram is recommended. This exam was interpreted at Station ID: [id number]. NOTE: For mammograms, a report in lay terms will be sent to the patient. Approximately 15% of breast malignancies will not be visualized mammographically. In the management of a palpable breast mass, a negative mammogram must not discourage biopsy of a clinically suspicious lesion. Electronically Signed By: Carol linares/ranjan:06/16/2018 12:04:29 letter sent: Normal Exam ACR BI-RADS Category 1: Negative [id number]
== END ==
PROVIDERS: PCP Family Medicine; Visit Provider Family Medicine
DX: Z12.31 Encounter for screening mammogram for malignant neoplasm of breast (principal); Z80.3 Family history of malignant neoplasm of breast
CPT/HCPCS: 77063; 77067

== ENCOUNTER → 2018-07-18 14:18 | Outpatient (CLI) | payer MEDICARE, OTHER, SELFPAY ==
--- NOTE | 2018-07-18 | DI.US.S_ITS ---
PROCEDURE: US THYROID INDICATIONS: NONTOXIC SINGLE THYROID NODULE TECHNIQUE: Real-time scanning was performed of the thyroid gland, with image documentation. COMPARISON: [facility], US, US GUIDED BX THYROID (FNA), 08/30/2016, 13:06. , US, THYROID, 07/19/2016, 15:54. , US, US FINE NEEDLE ASPIRATION, 08/15/2017, 13:55. , US, US THYROID, 07/27/2017, 11:44. FINDINGS: Right: Thyroid lobe measures 4.1 x 1.4 x 1.1 cm, and is homogeneous in echotexture. Left: Thyroid lobe measures 5.6 x 2.5 x 2.0 cm, and is homogenous in echotexture. Isthmus: 2 mm thick. Nodule number: 1 Location: Right upper pole Size: 0.9 x 0.5 x 0.7 cm. Composition: Predominantly solid Echogenicity: Isoechoic Shape: wider than tall. Margins: Smooth Echogenic foci: None Total points: 3 ACR TI-RADS category: 3 Nodule number: 2 Location: Right interpolar region Size: 0.9 x 0.5 x 0.5 cm. Composition: Solid Echogenicity: Hypoechoic Shape: wider than tall. Margins: Smooth Echogenic foci: None Total points: 4 ACR TI-RADS category: 4 Nodule number: 3 Location: Right inferior pole Size: 1.7 x 0.9 x 0.9 cm. Composition: Solid Echogenicity: Predominantly isoechoic Shape: Smooth Margins: Smooth Echogenic foci: None Total points: 3 ACR TI-RADS category: 3 Nodule number: 4 Location: Left upper pole although differential includes parathyroid origin Size: 0.8 x 0.7 x 0.7 cm. Composition: Solid Echogenicity: Hypoechoic Shape: wider than tall. Margins: Smooth Echogenic foci: Punctate Total points: 7 ACR TI-RADS category: 5 Nodule number: 5 Location: Left mid to inferior pole Size: 3.1 x 2.2 x 2.3 cm Composition: Solid Echogenicity: Hyperechoic Shape: wider than tall. Margins: Smooth Echogenic foci: Punctate Total points: 6 ACR TI-RADS category: 4 IMPRESSION: Multiple bilateral thyroid nodules as detailed above. Nodule #5 in the left lobe, mid-inferior pole is probably unchanged in size dating back to prior study from 07/19/16. Of note, this has been previously sampled by FNA. Please correlate clinically and with results. If needed repeat FNA could be performed based on level of clinical suspicion. ACR TI-RADS definitions and recommendations: TI-RADS 1 (benign): 0 points. FNA not needed. TI-RADS 2 (not suspicious): 2 points. FNA not needed. TI-RADS 3 (mildly suspicious): 3 points. * FNA if 2.5 cm or larger, follow up if 1.5 cm or larger (at 1, 3, and 5 years). TI-RADS 4 (moderately suspicious): 4-6 points. * FNA if 1.5 cm or larger, follow up if 1 cm or larger (at 1, 2, 3, and 5 years). TI-RADS 5 (highly suspicious): 7 points or more. * FNA if 1 cm or larger, follow up if 0.5 cm or larger (every year for 5 years). Dictated by: Baldev Matthews M.D. on 07/18/2018 at 16:50 Approved by: Baldev Matthews M.D. on 07/18/2018 at 17:04
== END ==
PROVIDERS: Family Provider Otolaryngology; PCP Family Medicine; Visit Provider Family Medicine
DX: E04.2 Nontoxic multinodular goiter (principal)
CPT/HCPCS: 76536

== ENCOUNTER → 2018-07-19 08:29 | Outpatient (CLI) | payer MEDICARE, OTHER, SELFPAY ==
[2018-07-19 10:10] LABS: Add Manual Diff / Slide Review NO; Basophils Absolute Auto 0 /uL (0-100); Basophils Percent Auto 0.8 % (0-2); Eosinophils Absolute Auto 200 /uL (0-450); Eosinophils Percent Auto 2.6 % (2-4); Hematocrit 44.6 % (36-46); Hemoglobin 14.5 g/dL (12.0-16.0); Lymphocytes Absolute Auto 1300 /uL (1100-4500); Lymphocytes Percent Auto 22.6 % (25-40); Mean Corpuscular HGB Conc 32.4 % (30-36); Mean Corpuscular Hemoglobin 30.3 PG (26-34); Mean Corpuscular Volume 93.5 fL (80-100); Monocytes Absolute Auto 700 /uL (0-900); Monocytes Percent Auto 11.9 % (3-14); Neutrophils Absolute Auto 3500 /uL (1500-7000); Neutrophils Percent Auto 62.1 % (50-75); Platelet Count 222 X10^3/uL (150-400); Red Blood Cell Count 4.78 X10^6/uL (4.0-5.2); Red Cell Distribution Width 14.6 % (11.6-14.8); White Blood Cell Count 5.7 X10^3/uL (4.5-11.0)
[2018-07-19 10:23] LABS: Alanine Aminotransferase 25 IU/L (9-52); Albumin 4.6 g/dL (3.5-5.0); Albumin Globulin Ratio 1.6 (1.0-2.8); Alkaline Phosphatase 97 U/L (38-126); Aspartate Aminotransferase 29 IU/L (14-36); BUN Creatinine Ratio 23.3 (6-22); Bilirubin Total 0.7 mg/dL (0.2-1.3); Blood Urea Nitrogen 14 mg/dL (7-17); Calcium 9.6 mg/dL (8.4-10.2); Carbon Dioxide 31 mmol/L (22-32); Chloride 102 mmol/L (98-107); Cholesterol 198 mg/dL (140-199); Estimated Glomerular Filt Rate > 60.0 mL/min (>60); Globulin 2.9 g/dL (1.7-4.1); Glucose 88 mg/dL (80-110); HDL Cholesterol 63 mg/dL (40-60); HEMOLYSIS 21 (0-50); LDL Cholesterol Calculated 117 mg/dL (<100); Sodium 141 mmol/L (137-145); Total Protein 7.5 g/dL (6.3-8.2); Triglycerides 91 mg/dL (35-150)
[2018-07-19 10:53] LABS: Vitamin D 25 Hydroxy (D3) 53.4 ng/mL (30.0-100.0)
[2018-07-19 10:54] LABS: Free T3, Triiodothyronine Free 3.97 pg/mL (2.77-5.27); Free T4, Direct Thyroxine 1.69 ng/dL (0.78-2.19)
[2018-07-19 11:08] LABS: Thyroid Stimulating Hormone 0.73 uIU/mL (0.47-4.68)
== END ==
PROVIDERS: PCP Family Medicine; Visit Provider Family Medicine
DX: E03.9 Hypothyroidism, unspecified (principal); E78.49 Other hyperlipidemia; I48.91 Unspecified atrial fibrillation; E55.9 Vitamin D deficiency, unspecified; M85.80 Other specified disorders of bone density and structure, unspecified site
CPT/HCPCS: 36415; 80053; 80061; 82306; 82542; 84439; 84443; 84481; 85025

== ENCOUNTER 2018-07-31 09:45 | Outpatient (RCR) | payer MEDICARE, OTHER, SELFPAY ==
--- NOTE | 2018-05-05 16:17 | PT.OPPOC ---
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/18) Muscle weakness (generalized) (05/05/18) Stress incontinence (female) (male) (05/05/18) Provider Visit Care Team Role Provider Type Veronique Haq MD Primary Care Provider Physician Specialty: Family Practice Address: [address] [address] Email: Yolande Dos Santos MD Attending Provider Physician Specialty: SWITCHING CLERK Address: [address] [place] [address], [address] Email: [email or web address] Plan Of Care PT-OP-T Assessment and Plan Start: 05/02/18 17:53 Freq: Status: Active Protocol: Document 05/05/18 10:37 LRN (Rec: 05/05/18 11:08 LRN [id number]) Physical Therapy Assessment Rehab Potential Rehabilitation Potential Good Evaluation Complexity Number of Personal Factors/Comorbidities 1-2 Number of Body Systems Impaired 1-2 Clinical Presentation at Evaluation Stable Impairments Impairments Pain Other Concerns Age Related Concerns 65+ years old. Goals PF strength Impairment PF strength is 0/5 Delinquency Prevention Officer Goal (LTG) Pt will be able to perform a PF contraction of at least 3/5 and with positioning changes be able to eliminate the feeling of pain in the PF. LTG Duration 06/04/09 PF endurance Impairment Pt is not able to hold a PF contraction Delinquency Prevention Officer Goal (LTG) Pt will be able to hold a PF contraction 10 sec's and will be able to prevent urinary leakage first in the morning, when she has not voided during the night, as she is walking to the toilet. LTG Duration 08/04/09 PF Awareness Impairment Pt is not able to perform a PF contraction for long holds or quick flicks. Short Term Goal (STG) Pt will be aware of how to perform a PF contraction with assist of substitute muscles. STG Duration 05/26/18 Delinquency Prevention Officer Goal (LTG) Pt will be able to perform a PF contraction without the use of substitute muscles. LTG Duration 08/04/09 HEP Impairment Lacks appropriate HEP Delinquency Prevention Officer Goal (LTG) Pt will be independent in a self care HEP. LTG Duration 08/04/09 Assessment Summary Assessment The pt presents with no visible PF contraction and no palpable PF contraction on internal assessment. She is able to get a slight lift of the posterior PF when using her hip adductors and gluteal muscles to assist. In supine there is visibly soft tissue entering the vaginal canal, but when internally palpated the soft tissue is able to be pushed inward and repositioned ; therefore she appears to have a uterine prolapse that does not extend beyond the hymen. The pt has extreme weakness of her PF and experiences urinary leakage with walking to the toilet in the mornings indicating a symptom of stress incontinence . She is voiding quite frequently and will benefit from skilled physical therapy for bladder retraining and to improve her awareness of a PF contraction and to improve her PF strength. If she is not able provide enough support for her bladder and uterus, then other options may be needed to help her find relief of her pelvic pressure pain. Physical Therapy Plan Frequency and Duration Frequency of Treatment 2x/Week Plan of Care Start Date 05/05/18 Plan of Care End Date 08/04/09 Therapeutic Interventions Therapeutic Interventions Home Exercise Program Manual Therapy Patient/Caregiver Education Self-Care/Home Management Therapeutic Exercises Modalities Biofeedback Electric Stimulation Next Visit Focus/Plan Next Note Type Treatment Note Next Visit Plan Review Bladder Diary and HEP ( Kegels) - visual inspection of PF contraction. Assess PF strength per EMG biofeedback, E-Stim to improve awareness of PF contraction. Plan of Care Dates Plan of Care Start Date 05/05/18 Plan of Care End Date 08/04/09 Please Sign and Return: I have reviewed this Plan of Care and certify that the skilled therapy services above are required to meet the patient?s needs. Physician Signature Date Printed Name and Credentials Clinical Instructor Signature Printed Name and Credentials
--- NOTE | 2018-05-05 16:17 | PT.OIE ---
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/18) Muscle weakness (generalized) (05/05/18) Stress incontinence (female) (male) (05/05/18) Provider Visit Care Team Role Provider Type Veronique Haq MD Primary Care Provider Physician Specialty: Family Practice Address: [address] [address] Email: Yolande Dos Santos MD Attending Provider Physician Specialty: STATE TESTED NURSING ASSISTANT Address: [address] [place] [address], [address] Email: [email or web address] Physical Therapy Initial Evaluation PT-OP-A Visit Information Start: 05/02/18 17:53 Freq: Status: Active Protocol: Document 05/05/18 10:37 LRN (Rec: 05/05/18 11:08 LRN [id number]) Out-Patient Physical Therapy Visit Information Visit Information Visit Type Initial Evaluation Visit Start Time 10:37 Visit Stop Time 11:27 Total Visit Minutes 50 Visit Number 1 Number of VAC PRESS OPERATOR Visits 0 Evaluation Information Evaluation Date 05/05/18 Precautions Precautions LATEX ALLERGY but able to wear latex gloves. R Gluteaus Minimus tear PT-OP-B Current Condition Start: 05/02/18 17:53 Freq: Status: Active Protocol: Document 05/05/18 10:37 LRN (Rec: 05/05/18 11:08 LRN [id number]) Current Condition History of Current Condition Onset Date Ongoing for 3 yrs., but recently encouraged by friend to have PT Current Complaints Feeling of falling out w/heavy work & bladder control px 1st in the AM. History of Current Condition Pt has history of cysts in the uterus. She feels the cysts are making her urinate more and putting pressure on her PF causing discomfort. When doing heavy work or lifting she reports pain in uterus floor. States she feels like it is going to fall out. She also states if she does not wake up once a night to urinate then first thing in the morning she will sometimes have urinary leakage as she heads to the toilet. Prior Treatments and Tests Pt states MRI & Ultrasound has shown she has uterine cysts. Future Testing and Treatments Planned None Treatment Goals Patient/Caregiver Goals Pt goal is to learn and ex that would help with pelvic floor pain and leakage. Prior Functional Status Baseline Function- ADL's Independent Baseline Function- Mobility Independent Baseline Function- Recreation/Hobbies Walks 3 miles 3x/week (3 mph) Current Functional Impairments (Reported) Functional Limitations- ADL's Increased toileting of 10x/day . Slow urinary stream and a feeling of the bladder being full after urinating. Running water trigger causing urge to urinate. Functional Limitations- Mobility/Gait Urinary leakage first in the morning if she sleeps through the night. Personal Factors Other Personal Factors That May Effect Rapid heart rate Therapy/Recovery R Gluteus Minimus tear PT-OP-C Subjective Start: 05/02/18 17:53 Freq: Status: Active Protocol: Document 05/05/18 10:37 LRN (Rec: 05/05/18 16:27 LRN [id number]) Patient Questionnaires Pelvic Pain and Urgency/Frequency Patient Symptom Scale Pelvic Pain Score 10 PT-OP-I Pelvic Floor Start: 05/05/18 11:08 Freq: Status: Active Protocol: Document 05/05/18 10:37 LRN (Rec: 05/05/18 16:27 LRN [id number]) Pelvic Floor Assessment Urine Pelvic Floor Surgery No Urinary Symptoms Falling Out Feeling/Heavy Pain Other Urinary Symptoms Sometimes urinary Leakage ( ranging from a few drops to wetting of underwear) first in the AM while walking to the toilet. Leaks Per Day 1 Voiding Frequency 10x/day Nocturia 0-1 Pelvic Clock Pelvic Clock 3-6 Tightness Prolapse Uterine Prolapse Grade 3 Prolapse Comments In supine position: it appeared the uterus had descended but not past the Hymen. I was able to push it upward without onset of pain. The bladder appeared to be mildly protruding. Pt skin around the vaginal opening appeared to be dry, but the Labia Majora and Labia Minora appeared intact. Perineal Descent Resting Absent Bearing Present Contraction Ability Voluntary Contraction Absent Manual Muscle Testing Left 0 Manual Muscle Testing Right 0 Manual Muscle Testing Anterior 0 Manual Muscle Testing Posterior 1 Muscle Endurance (Seconds) 0 Number of Quick Contractions In 10 0 Seconds Comments Pelvic Floor Comments Fast twitch muscle contraction felt only after the 7th attempted contraction. PT-OP-J Posture/Palpation/Skin Start: 05/02/18 17:53 Freq: Status: Active Protocol: Document 05/05/18 10:37 LRN (Rec: 05/05/18 16:27 LRN [id number]) Posture Evaluation Comments Posture Comments In standing: R iliac crest is high, sacrum is in mild L sidebend, mild lumbar lordosis . Her head is forward with a moderate Dowagers hump. PT-OP-K Range of Motion Start: 05/02/18 17:53 Freq: Status: Active Protocol: Document 05/05/18 10:37 LRN (Rec: 05/05/18 16:27 LRN [id number]) Lumbar Spine Range of Motion Lumbar Spine Active Percentage Testing Position Standing Flexion 100 Rotation Left 100 Rotation Right 100 Lateral Flexion Left 100 Lateral Flexion Right 100 Hip Goniometric Range of Motion Hip Measured in Degrees Right Passive Hip ROM WFL No Testing Position Sitting Straight Leg Raise 90 Internal Rotation 30 External Rotation 50 Left Passive Hip ROM WFL No Testing Position Sitting Straight Leg Raise 85 Internal Rotation 30 External Rotation 55 PT-OP-M Strength Start: 05/02/18 17:53 Freq: Status: Active Protocol: Document 05/05/18 10:37 LRN (Rec: 05/05/18 16:27 LRN [id number]) Hip Strength Hip Manual Muscle Testing Right Flexion (L2) 5 Normal Extension (S1) 3 Fair Abduction 4+ Good+ Adduction 5 Normal External Rotation 5 Normal Internal Rotation 4- Good- Comments Knee and ankle LE strength is generally 5/5. Left Flexion (L2) 4+ Good+ Extension (S1) 3 Fair Abduction 5 Normal Adduction 3 Fair External Rotation 5 Normal Internal Rotation 4- Good- Comments Knee and ankle LE strength is generally 5/5. PT-OP-Q Treatments Start: 05/02/18 17:53 Freq: Status: Active Protocol: Document 05/05/18 10:37 LRN (Rec: 05/05/18 16:35 LRN [id number]) Self-Care/Home Management Treatment Education Patient Education Home Exercise Program Other Education Pt issued and educated in filling out of bladder diary. Activities Self-Care/Home Management Activities Pt issued and reviewed Kegel ex's for HEP: Quick Flicks and Endurance Holds. PT-OP-T Assessment and Plan Start: 05/02/18 17:53 Freq: Status: Active Protocol: Document 05/05/18 10:37 LRN (Rec: 05/05/18 11:08 LRN [id number]) Physical Therapy Assessment Rehab Potential Rehabilitation Potential Good Evaluation Complexity Number of Personal Factors/Comorbidities 1-2 Number of Body Systems Impaired 1-2 Clinical Presentation at Evaluation Stable Impairments Impairments Pain Other Concerns Age Related Concerns 65+ years old. Goals PF strength Impairment PF strength is 0/5 Fpc Goal (LTG) Pt will be able to perform a PF contraction of at least 3/5 and with positioning changes be able to eliminate the feeling of pain in the PF. LTG Duration 06/04/09 PF endurance Impairment Pt is not able to hold a PF contraction Dry Man Goal (LTG) Pt will be able to hold a PF contraction 10 sec's and will be able to prevent urinary leakage first in the morning, when she has not voided during the night, as she is walking to the toilet. LTG Duration 08/04/09 PF Awareness Impairment Pt is not able to perform a PF contraction for long holds or quick flicks. Short Term Goal (STG) Pt will be aware of how to perform a PF contraction with assist of substitute muscles. STG Duration 05/26/18 Dry Man Goal (LTG) Pt will be able to perform a PF contraction without the use of substitute muscles. LTG Duration 08/04/09 HEP Impairment Lacks appropriate HEP Dry Man Goal (LTG) Pt will be independent in a self care HEP. LTG Duration 08/04/09 Assessment Summary Assessment The pt presents with no visible PF contraction and no palpable PF contraction on internal assessment. She is able to get a slight lift of the posterior PF when using her hip adductors and gluteal muscles to assist. In supine there is visibly soft tissue entering the vaginal canal, but when internally palpated the soft tissue is able to be pushed inward and repositioned ; therefore she appears to have a uterine prolapse that does not extend beyond the hymen. The pt has extreme weakness of her PF and experiences urinary leakage with walking to the toilet in the mornings indicating a symptom of stress incontinence . She is voiding quite frequently and will benefit from skilled physical therapy for bladder retraining and to improve her awareness of a PF contraction and to improve her PF strength. If she is not able provide enough support for her bladder and uterus, then other options may be needed to help her find relief of her pelvic pressure pain. Physical Therapy Plan Frequency and Duration Frequency of Treatment 2x/Week Plan of Care Start Date 05/05/18 Plan of Care End Date 08/04/09 Therapeutic Interventions Therapeutic Interventions Home Exercise Program Manual Therapy Patient/Caregiver Education Self-Care/Home Management Therapeutic Exercises Modalities Biofeedback Electric Stimulation Next Visit Focus/Plan Next Note Type Treatment Note Next Visit Plan Review Bladder Diary and HEP ( Kegels) - visual inspection of PF contraction. Assess PF strength per EMG biofeedback, E-Stim to improve awareness of PF contraction.
--- NOTE | 2018-07-04 16:13 | PT.OTN ---
Current Diagnoses Other specified polyneuropathies (07/04/18) Physical Therapy Treatment Note PT-OP-A Visit Information Start: 05/02/18 17:53 Freq: Status: Active Protocol: Document 07/04/18 12:48 LRN (Rec: 07/04/18 13:38 LRN [id number]) Out-Patient Physical Therapy Visit Information Visit Information Visit Type Treatment Note Visit Start Time 12:49 Visit Stop Time 13:34 Total Visit Minutes 45 Visit Number 2 Number of VENDING MACHINE MECHANIC Visits 0 Evaluation Information Evaluation Date 05/05/18 Precautions Precautions LATEX ALLERGY but able to wear latex gloves. R Gluteaus Minimus tear PT-OP-B Current Condition Start: 05/02/18 17:53 Freq: Status: Active Protocol: Document 05/05/18 10:37 LRN (Rec: 05/05/18 11:08 LRN [id number]) Current Condition History of Current Condition Onset Date Ongoing for 3 yrs., but recently encouraged by friend to have PT Current Complaints Feeling of falling out w/heavy work & bladder control px 1st in the AM. History of Current Condition Pt has history of cysts in the uterus. She feels the cysts are making her urinate more and putting pressure on her PF causing discomfort. When doing heavy work or lifting she reports pain in uterus floor. States she feels like it is going to fall out. She also states if she does not wake up once a night to urinate then first thing in the morning she will sometimes have urinary leakage as she heads to the toilet. Prior Treatments and Tests Pt states MRI & Ultrasound has shown she has uterine cysts. Future Testing and Treatments Planned None Treatment Goals Patient/Caregiver Goals Pt goal is to learn and ex that would help with pelvic floor pain and leakage. Prior Functional Status Baseline Function- ADL's Independent Baseline Function- Mobility Independent Baseline Function- Recreation/Hobbies Walks 3 miles 3x/week (3 mph) Current Functional Impairments (Reported) Functional Limitations- ADL's Increased toileting of 10x/day . Slow urinary stream and a feeling of the bladder being full after urinating. Running water trigger causing urge to urinate. Functional Limitations- Mobility/Gait Urinary leakage first in the morning if she sleeps through the night. Personal Factors Other Personal Factors That May Effect Rapid heart rate Therapy/Recovery R Gluteus Minimus tear PT-OP-C Subjective Start: 05/02/18 17:53 Freq: Status: Active Protocol: Document 07/04/18 12:48 LRN (Rec: 07/04/18 13:38 LRN [id number]) OP-PT Subjective Patient Comments Patient Comments Did the paperwork but threw them out, so states she will fill them out for next visit. PT-OP-I Pelvic Floor Start: 05/05/18 11:08 Freq: Status: Active Protocol: Document 07/04/18 12:48 LRN (Rec: 07/04/18 13:38 LRN [id number]) Pelvic Floor Assessment SEMG (uV) Baseline 0.4 Quick Contraction 4.8 10 Second Contraction 6.2 Relaxation Good Holding Poor/Slow Stability of Hold Poor/Slow SEMG Stability of Rest Good PT-OP-J Posture/Palpation/Skin Start: 05/02/18 17:53 Freq: Status: Active Protocol: Document 05/05/18 10:37 LRN (Rec: 05/05/18 16:27 LRN [id number]) Posture Evaluation Comments Posture Comments In standing: R iliac crest is high, sacrum is in mild L sidebend, mild lumbar lordosis . Her head is forward with a moderate Dowagers hump. PT-OP-K Range of Motion Start: 05/02/18 17:53 Freq: Status: Active Protocol: Document 05/05/18 10:37 LRN (Rec: 05/05/18 16:27 LRN [id number]) Lumbar Spine Range of Motion Lumbar Spine Active Percentage Testing Position Standing Flexion 100 Rotation Left 100 Rotation Right 100 Lateral Flexion Left 100 Lateral Flexion Right 100 Hip Goniometric Range of Motion Hip Measured in Degrees Right Passive Hip ROM WFL No Testing Position Sitting Straight Leg Raise 90 Internal Rotation 30 External Rotation 50 Left Passive Hip ROM WFL No Testing Position Sitting Straight Leg Raise 85 Internal Rotation 30 External Rotation 55 PT-OP-M Strength Start: 05/02/18 17:53 Freq: Status: Active Protocol: Document 05/05/18 10:37 LRN (Rec: 05/05/18 16:27 LRN [id number]) Hip Strength Hip Manual Muscle Testing Right Flexion (L2) 5 Normal Extension (S1) 3 Fair Abduction 4+ Good+ Adduction 5 Normal External Rotation 5 Normal Internal Rotation 4- Good- Comments Knee and ankle LE strength is generally 5/5. Left Flexion (L2) 4+ Good+ Extension (S1) 3 Fair Abduction 5 Normal Adduction 3 Fair External Rotation 5 Normal Internal Rotation 4- Good- Comments Knee and ankle LE strength is generally 5/5. PT-OP-Q Treatments Start: 05/02/18 17:53 Freq: Status: Active Protocol: Document 07/04/18 12:48 LRN (Rec: 07/04/18 13:38 LRN [id number]) Therapeutic Exercises Supine Exercises PF Long Holds Supine Exercise Name PF 10 sec contraction/20 sec rest with Biofeedback Equipment Used EMG Biofeedback Comments Avg Work 6.2 uV's, Avg Rest 2. 0 uV's PF Quick Flicks Supine Exercise Name PF 1 sec contraction/2 sec rest with Biofeedback Equipment Used EMG Biofeedback Comments Avg Work 4.8 uV's, Rest 0.4 uV 's Self-Care/Home Management Treatment Education Patient Education Home Exercise Program Other Education Discussed completion of Bladder Diary for review. Discussed use of E-stim for PF muscle contraction awareness training, pt agreeable.. Discussed use of EMG biofeedback for strength assessment, pt agreeable. Activities Self-Care/Home Management Activities Issued & verbally reviewed HEP of Deep Breathing & LE Roll in/out. PT-OP-T Assessment and Plan Start: 05/02/18 17:53 Freq: Status: Active Protocol: Document 07/04/18 12:48 LRN (Rec: 07/04/18 13:38 LRN [id number]) Physical Therapy Assessment Assessment Summary Assessment PF strength is fair. Per EMG Biofeedback: Resting tone Avg is 0.4 uV's; Quick flicks: Avg strength is 4.8uV's with a decrease in strength after ~3 reps ; Long holds (10 sec's ) Avg strength is 6.2 uV's with immediate loss of strength upon initial contaction, resting avg is 2.0 uV's. Visibly the pt demonstrates a posterior PF contraction and very slight anterior contraction. Pt felt her own PF contraction is much stronger than the E-Stim assisted PF contraction. When pt removed electrode a slight pink liquid coloration was on vaginal electrode. Pt wiped electrode with tissue paper. No visible redness on tissue paper noted. Pt had no complaints of pain or discomfort in the vaginal region during use or after use of biofeedback. Physical Therapy Plan Frequency and Duration Frequency of Treatment 2x/Week Plan of Care Start Date 05/05/18 Plan of Care End Date 08/04/09 Next Visit Focus/Plan Next Note Type Treatment Note Next Visit Plan Review Bladder Diary - visual inspection of PF contraction. Review Deep Breathing Review LE Roll in/outs. Awareness of contraction training if needed. Manual therapy for lift of bladder, ?abdomen Hip stretches (L>R: IR, ER) Hip strengthening (Left: ext, AD, IR; Right: ext, AB, IR) On Wedge, Strengthen PF Endurance > Quick Flicks.
--- NOTE | 2018-07-11 13:10 | PT.OTN ---
Current Diagnoses Other specified polyneuropathies (07/11/18) Physical Therapy Treatment Note PT-OP-A Visit Information Start: 05/02/18 17:53 Freq: Status: Active Protocol: Document 07/11/18 09:48 LRN (Rec: 07/11/18 10:27 LRN [id number]) Out-Patient Physical Therapy Visit Information Visit Information Visit Type Treatment Note Visit Start Time 09:48 Visit Stop Time 10:26 Total Visit Minutes 38 Visit Number 3 Number of DATABASE MANAGEMENT SPECIALIST Visits 0 Evaluation Information Evaluation Date 05/05/18 Precautions Precautions LATEX ALLERGY but able to wear latex gloves. R Gluteaus Minimus tear PT-OP-B Current Condition Start: 05/02/18 17:53 Freq: Status: Active Protocol: Document 05/05/18 10:37 LRN (Rec: 05/05/18 11:08 LRN [id number]) Current Condition History of Current Condition Onset Date Ongoing for 3 yrs., but recently encouraged by friend to have PT Current Complaints Feeling of falling out w/heavy work & bladder control px 1st in the AM. History of Current Condition Pt has history of cysts in the uterus. She feels the cysts are making her urinate more and putting pressure on her PF causing discomfort. When doing heavy work or lifting she reports pain in uterus floor. States she feels like it is going to fall out. She also states if she does not wake up once a night to urinate then first thing in the morning she will sometimes have urinary leakage as she heads to the toilet. Prior Treatments and Tests Pt states MRI & Ultrasound has shown she has uterine cysts. Future Testing and Treatments Planned None Treatment Goals Patient/Caregiver Goals Pt goal is to learn and ex that would help with pelvic floor pain and leakage. Prior Functional Status Baseline Function- ADL's Independent Baseline Function- Mobility Independent Baseline Function- Recreation/Hobbies Walks 3 miles 3x/week (3 mph) Current Functional Impairments (Reported) Functional Limitations- ADL's Increased toileting of 10x/day . Slow urinary stream and a feeling of the bladder being full after urinating. Running water trigger causing urge to urinate. Functional Limitations- Mobility/Gait Urinary leakage first in the morning if she sleeps through the night. Personal Factors Other Personal Factors That May Effect Rapid heart rate Therapy/Recovery R Gluteus Minimus tear PT-OP-C Subjective Start: 05/02/18 17:53 Freq: Status: Active Protocol: Document 07/11/18 09:48 LRN (Rec: 07/11/18 10:27 LRN [id number]) OP-PT Subjective Patient Comments Patient Comments Light bleeding first day after last session. Has not had bleeding since. Thinks it may be from irritation of electrode being pushed to one side over the other. She states she will be having a pap smear tomorrow. Pt declined visual inspection of vaginal canal/PF. PT-OP-I Pelvic Floor Start: 05/05/18 11:08 Freq: Status: Active Protocol: Document 07/04/18 12:48 LRN (Rec: 07/04/18 13:38 LRN [id number]) Pelvic Floor Assessment SEMG (uV) Baseline 0.4 Quick Contraction 4.8 10 Second Contraction 6.2 Relaxation Good Holding Poor/Slow Stability of Hold Poor/Slow SEMG Stability of Rest Good PT-OP-J Posture/Palpation/Skin Start: 05/02/18 17:53 Freq: Status: Active Protocol: Document 05/05/18 10:37 LRN (Rec: 05/05/18 16:27 LRN [id number]) Posture Evaluation Comments Posture Comments In standing: R iliac crest is high, sacrum is in mild L sidebend, mild lumbar lordosis . Her head is forward with a moderate Dowagers hump. PT-OP-K Range of Motion Start: 05/02/18 17:53 Freq: Status: Active Protocol: Document 05/05/18 10:37 LRN (Rec: 05/05/18 16:27 LRN [id number]) Lumbar Spine Range of Motion Lumbar Spine Active Percentage Testing Position Standing Flexion 100 Rotation Left 100 Rotation Right 100 Lateral Flexion Left 100 Lateral Flexion Right 100 Hip Goniometric Range of Motion Hip Measured in Degrees Right Passive Hip ROM WFL No Testing Position Sitting Straight Leg Raise 90 Internal Rotation 30 External Rotation 50 Left Passive Hip ROM WFL No Testing Position Sitting Straight Leg Raise 85 Internal Rotation 30 External Rotation 55 PT-OP-M Strength Start: 05/02/18 17:53 Freq: Status: Active Protocol: Document 05/05/18 10:37 LRN (Rec: 05/05/18 16:27 LRN [id number]) Hip Strength Hip Manual Muscle Testing Right Flexion (L2) 5 Normal Extension (S1) 3 Fair Abduction 4+ Good+ Adduction 5 Normal External Rotation 5 Normal Internal Rotation 4- Good- Comments Knee and ankle LE strength is generally 5/5. Left Flexion (L2) 4+ Good+ Extension (S1) 3 Fair Abduction 5 Normal Adduction 3 Fair External Rotation 5 Normal Internal Rotation 4- Good- Comments Knee and ankle LE strength is generally 5/5. PT-OP-Q Treatments Start: 05/02/18 17:53 Freq: Status: Active Protocol: Document 07/11/18 09:48 LRN (Rec: 07/11/18 10:27 LRN [id number]) Therapeutic Exercises Supine Exercises Lateral hip stretch Supine Exercise Name Lateral hip stretch Side bilateral Reps/Minutes 2' Comments 1' holds Piriformis Stretch Supine Exercise Name Piriformis stretch ankle over knee Side bilateral Reps/Minutes 6 Comments 1' holds, (2 positions taught , 1 position stretched) Fig 4 stretch Supine Exercise Name Fig 4 stretch Side bilateral Reps/Minutes 4' Comments 1' holds LE Roll in/outs Supine Exercise Name LE Roll in/outs with deep breathing Side bilateral Reps/Minutes 8' Comments Extra time taken for training Deep Breathing Supine Exercise Name Deep breathing Reps/Minutes 10x Comments Extra time taken for training. Manual Therapy Treatment Soft Tissue Mobilization Abdomen Body Location Abdomen Mobilization Type Myofascial Release Intensity/Depth Superficial Body Position Supine Comments Release of L side of abdominal upper quadrant and R lower quadrant. Self-Care/Home Management Treatment Education Patient Education Home Exercise Program Other Education Pt I/S to seek medical assessment if she has further irritation of in the vaginal region or further bleeding. Activities Self-Care/Home Management Activities Issued and reviewed HEP of hip ex handout (Piriformis, lateral hip and fig 4 stretch bilaterally). I/S pt in proper stretch technique and not into pain. PT-OP-T Assessment and Plan Start: 05/02/18 17:53 Freq: Status: Active Protocol: Document 07/11/18 09:48 LRN (Rec: 07/11/18 12:56 LRN [id number]) Physical Therapy Assessment Goals PF strength Impairment PF strength is 0/5 Mcc Goal (LTG) Pt will be able to perform a PF contraction of at least 3/5 and with positioning changes be able to eliminate the feeling of pain in the PF. LTG Duration 10 PF endurance Impairment Pt is not able to hold a PF contraction Mcc Goal (LTG) Pt will be able to hold a PF contraction 10 sec's and will be able to prevent urinary leakage first in the morning, when she has not voided during the night, as she is walking to the toilet. LTG Duration 08/04/09 PF Awareness Impairment Pt is not able to perform a PF contraction for long holds or quick flicks. Short Term Goal (STG) Pt will be aware of how to perform a PF contraction with assist of substitute muscles. STG Duration 05/26/18 Mcc Goal (LTG) Pt will be able to perform a PF contraction without the use of substitute muscles. LTG Duration 08/04/09 HEP Impairment Lacks appropriate HEP [place] Auditor Goal (LTG) Pt will be independent in a self care HEP. LTG Duration 08/04/09 Progress Towards Goals Progress Towards Goals Goals Met Progress Comments 1. PF strength: Ongoing assessment is needed to determine if pt is performing a proper PF contraction and if strength is improved from 0/5 . (07/11/18): No c/o PF pain. 2. Weakness of Endance (long holds) not assessed. 3. PF Awareness (07/11/18): Pt is learning to assist PF with deep breathing. Use of accessory muscles to perform a PF contraction was not assessed. 4. HEP: progressing Assessment Summary Assessment Pt did not complete her bladder diary. Pt appeared uncomfortable with PF work today; therefore manual therapy given to abdomen and visual inspection of PF held. Pt demonstrated belly breathing but is shallow and quick. Pt appeared to be able to coordinate LE roll in/outs with breathing after training , but did not progress with resistance due to shallow breathing by pt. Pt had soft tissue tightness in abdomen on the right, but bladder appeared to be centered. Fair recall of HEP of hip stretches, review needed. Physical Therapy Plan Frequency and Duration Frequency of Treatment 2x/Week Plan of Care Start Date 05/05/18 Plan of Care End Date 08/04/09 Next Visit Focus/Plan Next Note Type Treatment Note Next Visit Plan Review Bladder Diary if completed - visual inspection of PF contraction. Review Deep Breathing for slowness of breath. Review LE Roll in/outs with breathing, add PF contraction training and progress to resistance. Manual therapy to check bladder position and soft tissue at abdomen Hip stretches (L>R: IR, ER), review if needed. Add Hip strengthening (Left: ext, AD, IR; Right: ext, AB, IR) On Wedge, Strengthen PF Endurance > Quick Flicks.
--- NOTE | 2018-07-17 14:27 | PT.OTN ---
Current Diagnoses Other specified polyneuropathies (07/17/18) Physical Therapy Treatment Note PT-OP-A Visit Information Start: 05/02/18 17:53 Freq: Status: Active Protocol: Document 07/17/18 11:18 LRN (Rec: 07/17/18 14:27 LRN [id number]) Out-Patient Physical Therapy Visit Information Visit Information Visit Type Treatment Note Visit Start Time 11:18 Visit Stop Time 12:00 Total Visit Minutes 42 Visit Number 4 Number of REPORT DEVELOPER Visits 0 Evaluation Information Evaluation Date 05/05/18 Precautions Precautions LATEX ALLERGY but able to wear latex gloves. R Gluteaus Minimus tear PT-OP-B Current Condition Start: 05/02/18 17:53 Freq: Status: Active Protocol: Document 05/05/18 10:37 LRN (Rec: 05/05/18 11:08 LRN [id number]) Current Condition History of Current Condition Onset Date Ongoing for 3 yrs., but recently encouraged by friend to have PT Current Complaints Feeling of falling out w/heavy work & bladder control px 1st in the AM. History of Current Condition Pt has history of cysts in the uterus. She feels the cysts are making her urinate more and putting pressure on her PF causing discomfort. When doing heavy work or lifting she reports pain in uterus floor. States she feels like it is going to fall out. She also states if she does not wake up once a night to urinate then first thing in the morning she will sometimes have urinary leakage as she heads to the toilet. Prior Treatments and Tests Pt states MRI & Ultrasound has shown she has uterine cysts. Future Testing and Treatments Planned None Treatment Goals Patient/Caregiver Goals Pt goal is to learn and ex that would help with pelvic floor pain and leakage. Prior Functional Status Baseline Function- ADL's Independent Baseline Function- Mobility Independent Baseline Function- Recreation/Hobbies Walks 3 miles 3x/week (3 mph) Current Functional Impairments (Reported) Functional Limitations- ADL's Increased toileting of 10x/day . Slow urinary stream and a feeling of the bladder being full after urinating. Running water trigger causing urge to urinate. Functional Limitations- Mobility/Gait Urinary leakage first in the morning if she sleeps through the night. Personal Factors Other Personal Factors That May Effect Rapid heart rate Therapy/Recovery R Gluteus Minimus tear PT-OP-C Subjective Start: 05/02/18 17:53 Freq: Status: Active Protocol: Document 07/17/18 11:18 LRN (Rec: 07/17/18 14:27 LRN [id number]) OP-PT Subjective Patient Comments Patient Comments Did part of bladder diary, drinks decaf 90% of time. States she is not having to sit and wait to finish urinating as she has been in the past. PT-OP-I Pelvic Floor Start: 05/05/18 11:08 Freq: Status: Active Protocol: Document 07/04/18 12:48 LRN (Rec: 07/04/18 13:38 LRN [id number]) Pelvic Floor Assessment SEMG (uV) Baseline 0.4 Quick Contraction 4.8 10 Second Contraction 6.2 Relaxation Good Holding Poor/Slow Stability of Hold Poor/Slow SEMG Stability of Rest Good PT-OP-J Posture/Palpation/Skin Start: 05/02/18 17:53 Freq: Status: Active Protocol: Document 05/05/18 10:37 LRN (Rec: 05/05/18 16:27 LRN [id number]) Posture Evaluation Comments Posture Comments In standing: R iliac crest is high, sacrum is in mild L sidebend, mild lumbar lordosis . Her head is forward with a moderate Dowagers hump. PT-OP-K Range of Motion Start: 05/02/18 17:53 Freq: Status: Active Protocol: Document 05/05/18 10:37 LRN (Rec: 05/05/18 16:27 LRN [id number]) Lumbar Spine Range of Motion Lumbar Spine Active Percentage Testing Position Standing Flexion 100 Rotation Left 100 Rotation Right 100 Lateral Flexion Left 100 Lateral Flexion Right 100 Hip Goniometric Range of Motion Hip Measured in Degrees Right Passive Hip ROM WFL No Testing Position Sitting Straight Leg Raise 90 Internal Rotation 30 External Rotation 50 Left Passive Hip ROM WFL No Testing Position Sitting Straight Leg Raise 85 Internal Rotation 30 External Rotation 55 PT-OP-M Strength Start: 05/02/18 17:53 Freq: Status: Active Protocol: Document 05/05/18 10:37 LRN (Rec: 05/05/18 16:27 LRN [id number]) Hip Strength Hip Manual Muscle Testing Right Flexion (L2) 5 Normal Extension (S1) 3 Fair Abduction 4+ Good+ Adduction 5 Normal External Rotation 5 Normal Internal Rotation 4- Good- Comments Knee and ankle LE strength is generally 5/5. Left Flexion (L2) 4+ Good+ Extension (S1) 3 Fair Abduction 5 Normal Adduction 3 Fair External Rotation 5 Normal Internal Rotation 4- Good- Comments Knee and ankle LE strength is generally 5/5. PT-OP-Q Treatments Start: 05/02/18 17:53 Freq: Status: Active Protocol: Document 07/17/18 11:18 LRN (Rec: 07/17/18 14:27 LRN [id number]) Therapeutic Exercises Supine Exercises LE Roll in/outs Supine Exercise Name LE Roll in/outs with deep breathing Side bilateral Reps/Minutes 15' Comments After ex, repeated with added 1) Wedge, 2) pillow with ball and L2 T-Band Deep Breathing Supine Exercise Name Deep breathing Reps/Minutes 4' Comments Working on slowing breathing, improving abdominal excursion Manual Therapy Treatment Soft Tissue Mobilization Abdomen Body Location Abdomen Mobilization Type Myofascial Release Intensity/Depth Superficial Body Position Supine Comments Rotation of trunk to the left, abdominal stretch of Bilateral lower quadrants. Self-Care/Home Management Treatment Education Other Education Review of bladder diary and discussion of voiding times, anatomy of PF, physiology of bladder & urethra. Discussed pt to avoid holding breath with activities, valsa movement with activities and bowel movement, clothing and effect on PF. Activities Self-Care/Home Management Activities Issued Lev 2 T-Band with I/S and review for use with LE roll in/out ex's, placing hips on pillow. PT-OP-T Assessment and Plan Start: 05/02/18 17:53 Freq: Status: Active Protocol: Document 07/17/18 11:18 LRN (Rec: 07/17/18 14:27 LRN [id number]) Physical Therapy Assessment Assessment Summary Assessment Per bladder diary review, pt is having very long voiding times and is having to sit for a few seconds before having a 2nd void to fully empty. Pt has symptoms of dribbling; therefore expected compression or kink in urethra with cystocele. Pt has trouble slowing down her deep breathing. She has a 2 sec inhale and 4-5 sec exhale. Pt clothing is very tight around the waist. The pt does not seem receptive to changing to looser clothing around the waist. She chose not to use biofeedback today and appears apprehensive about use due to possible bleeding with first time use. In addition to biofeedback the pt may benefit from stim to improve blood flow of the PF. Physical Therapy Plan Frequency and Duration Frequency of Treatment 2x/Week Plan of Care Start Date 05/05/18 Plan of Care End Date 08/04/09 Next Visit Focus/Plan Next Note Type Treatment Note Next Visit Plan Visual inspection of PF contraction and use of EMG biofeedback for strengthening. Review Deep Breathing for slowness of breath. Review LE Roll in/outs with breathing, add PF contraction training and progress to resistance. Manual therapy to check bladder position and soft tissue at abdomen Hip stretches (L>R: IR, ER), review if needed. Add Hip strengthening (Left: ext, AD, IR; Right: ext, AB, IR) On Wedge, Strengthen PF Endurance > Quick Flicks.
--- NOTE | 2018-07-31 15:18 | PT.OTN ---
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) Physical Therapy Treatment Note PT-OP-A Visit Information Start: 05/02/18 17:53 Freq: Status: Active Protocol: Document 07/31/18 09:57 LRN (Rec: 07/31/18 11:01 LRN [id number]) Out-Patient Physical Therapy Visit Information Visit Information Visit Type Treatment Note Visit Start Time 09:57 Visit Stop Time 10:45 Total Visit Minutes 48 Visit Number 5 Number of FAGOT HEATER HELPER Visits 0 Evaluation Information Evaluation Date 05/05/18 Precautions Precautions LATEX ALLERGY but able to wear latex gloves. R Gluteaus Minimus tear PT-OP-B Current Condition Start: 05/02/18 17:53 Freq: Status: Active Protocol: Document 05/05/18 10:37 LRN (Rec: 05/05/18 11:08 LRN [id number]) Current Condition History of Current Condition Onset Date Ongoing for 3 yrs., but recently encouraged by friend to have PT Current Complaints Feeling of falling out w/heavy work & bladder control px 1st in the AM. History of Current Condition Pt has history of cysts in the uterus. She feels the cysts are making her urinate more and putting pressure on her PF causing discomfort. When doing heavy work or lifting she reports pain in uterus floor. States she feels like it is going to fall out. She also states if she does not wake up once a night to urinate then first thing in the morning she will sometimes have urinary leakage as she heads to the toilet. Prior Treatments and Tests Pt states MRI & Ultrasound has shown she has uterine cysts. Future Testing and Treatments Planned None Treatment Goals Patient/Caregiver Goals Pt goal is to learn and ex that would help with pelvic floor pain and leakage. Prior Functional Status Baseline Function- ADL's Independent Baseline Function- Mobility Independent Baseline Function- Recreation/Hobbies Walks 3 miles 3x/week (3 mph) Current Functional Impairments (Reported) Functional Limitations- ADL's Increased toileting of 10x/day . Slow urinary stream and a feeling of the bladder being full after urinating. Running water trigger causing urge to urinate. Functional Limitations- Mobility/Gait Urinary leakage first in the morning if she sleeps through the night. Personal Factors Other Personal Factors That May Effect Rapid heart rate Therapy/Recovery R Gluteus Minimus tear PT-OP-C Subjective Start: 05/02/18 17:53 Freq: Status: Active Protocol: Document 07/31/18 09:57 LRN (Rec: 07/31/18 11:01 LRN [id number]) OP-PT Subjective Patient Comments Patient Comments Came down with bad allergy cold. Coughing up mucus. Has had only occasional constipation. Usually sore after ex's. PT-OP-I Pelvic Floor Start: 05/05/18 11:08 Freq: Status: Active Protocol: Document 07/31/18 09:57 LRN (Rec: 07/31/18 14:48 LRN [id number]) Pelvic Floor Assessment Pelvic Clock Pelvic Clock 3-6 Tenderness Pelvic Clock 6-9 Tenderness Pelvic Clock Other Assessment Internally. Excessive gel used due to pt's dry vaginal region. Externally - No palpable pain. Hardened ropey areas in colon region PT-OP-J Posture/Palpation/Skin Start: 05/02/18 17:53 Freq: Status: Active Protocol: Document 05/05/18 10:37 LRN (Rec: 05/05/18 16:27 LRN [id number]) Posture Evaluation Comments Posture Comments In standing: R iliac crest is high, sacrum is in mild L sidebend, mild lumbar lordosis . Her head is forward with a moderate Dowagers hump. PT-OP-K Range of Motion Start: 05/02/18 17:53 Freq: Status: Active Protocol: Document 05/05/18 10:37 LRN (Rec: 05/05/18 16:27 LRN [id number]) Lumbar Spine Range of Motion Lumbar Spine Active Percentage Testing Position Standing Flexion 100 Rotation Left 100 Rotation Right 100 Lateral Flexion Left 100 Lateral Flexion Right 100 Hip Goniometric Range of Motion Hip Measured in Degrees Right Passive Hip ROM WFL No Testing Position Sitting Straight Leg Raise 90 Internal Rotation 30 External Rotation 50 Left Passive Hip ROM WFL No Testing Position Sitting Straight Leg Raise 85 Internal Rotation 30 External Rotation 55 PT-OP-M Strength Start: 05/02/18 17:53 Freq: Status: Active Protocol: Document 05/05/18 10:37 LRN (Rec: 05/05/18 16:27 LRN [id number]) Hip Strength Hip Manual Muscle Testing Right Flexion (L2) 5 Normal Extension (S1) 3 Fair Abduction 4+ Good+ Adduction 5 Normal External Rotation 5 Normal Internal Rotation 4- Good- Comments Knee and ankle LE strength is generally 5/5. Left Flexion (L2) 4+ Good+ Extension (S1) 3 Fair Abduction 5 Normal Adduction 3 Fair External Rotation 5 Normal Internal Rotation 4- Good- Comments Knee and ankle LE strength is generally 5/5. PT-OP-Q Treatments Start: 05/02/18 17:53 Freq: Status: Active Protocol: Document 07/31/18 09:57 LRN (Rec: 07/31/18 11:01 LRN [id number]) Therapeutic Exercises Supine Exercises Iliopsoas stretch Supine Exercise Name SKTC with leg off end of table Side bilateral Reps/Minutes 4' Comments 60 sec hold f/b active stretch to hip flexor Prone Exercises Hip Extension Prone Exercise Name Long legged Hip Ext Side bilateral Reps/Minutes 10 x 3 each Comments Extra time taken for training to prevent hip rotation with ext Sidelying Exercises Hip AD Sidelying Exercise Name Hip AD with top leg behiind Side bilateral Reps/Minutes 6' Comments L>R . Top leg behind due to R Gluteal Tear, extra time for positioning Manual Therapy Treatment Soft Tissue Mobilization PF Internally Body Location PF Clock 3-9 Mobilization Type Sustained Pressure Intensity/Depth Superficial Body Position Hooklying Comments Colon tender at hardened ropey areas Abdomen Body Location Lower Abdomen Mobilization Type Myofascial Release Intensity/Depth Superficial Body Position Supine Comments L>R: Mobilizing soft tissue around bladder, RLQ - Iliocecal valve. Self-Care/Home Management Treatment Education Patient Education Home Exercise Program Activities Self-Care/Home Management Activities Issued & reviewed HEP: Hip AD strengthening & Hip Ext stretching/strengthening, Hip Flexor stretching. PT-OP-T Assessment and Plan Start: 05/02/18 17:53 Freq: Status: Active Protocol: Document 07/31/18 09:57 LRN (Rec: 07/31/18 11:01 LRN [id number]) Physical Therapy Assessment Goals PF strength Impairment PF strength is 0/5 Senior Living Goal (LTG) Pt will be able to perform a PF contraction of at least 3/5 and with positioning changes be able to eliminate the feeling of pain in the PF. LTG Duration 4/7/10 PF endurance Impairment Pt is not able to hold a PF contraction Poultry Picking Machine Tender Goal (LTG) Pt will be able to hold a PF contraction 10 sec's and will be able to prevent urinary leakage first in the morning, when she has not voided during the night, as she is walking to the toilet. LTG Duration 08/04/09 PF Awareness Impairment Pt is not able to perform a PF contraction for long holds or quick flicks. Short Term Goal (STG) Pt will be aware of how to perform a PF contraction with assist of substitute muscles. STG Duration 05/26/18 Poultry Picking Machine Tender Goal (LTG) Pt will be able to perform a PF contraction without the use of substitute muscles. LTG Duration 08/04/09 HEP Impairment Lacks appropriate HEP Senior Living Goal (LTG) Pt will be independent in a self care HEP. LTG Duration 08/04/09 Assessment Summary Assessment Tight internally on Left. Hardened ropey area on colon with internal palpation. No tenderness external PF. General tenderness internally. Pain after Kegels limits pt' s ability to exercise. Pt may need to have ropey area in colon assessed if not changed next visit; otherwise if changed, probably from hardened stool. Physical Therapy Plan Frequency and Duration Frequency of Treatment 2x/Week Plan of Care Start Date 05/05/18 Plan of Care End Date 08/04/09 Therapeutic Interventions Therapeutic Interventions Home Exercise Program Manual Therapy Patient/Caregiver Education Self-Care/Home Management Therapeutic Exercises Modalities Biofeedback Electric Stimulation Next Visit Focus/Plan Next Note Type Treatment Note Next Visit Plan Start ex (review of HEP: hip AD/Ext strengthening, Iliopsoas stretching) and on wedge PF check for isolation of contraction; then STM internally to reduce pain from ex and assess hardened are of colon if changed. STM of abdomen to normalize tone on left. Might assist opening of Iliocecal valve. Check for rope hardness in colon on internal palpation. STM of bladder from abdomen. If time permits, EMG Biofeedback for strengthening. Review breathing and coordination with Kegel and review for proper Valsave. Yoga pose for stretch to Iliopsoas. If no change, pt may need cream to improve vaginal health.
--- NOTE | 2018-11-24 08:40 | PT.OPDS ---
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) Visit Care Team Role Provider Type Veronique Haq MD Primary Care Provider Physician Specialty: Family Practice Address: [address], [address] Email: Yolande Dos Santos MD Attending Provider Physician Specialty: BABY SITTER Address: [address] [place] [address], [address] Email: [email or web address] Visit Number Visit Number 5 Discharge Summary PT-OP-B Current Condition Start: 05/02/18 17:53 Freq: Status: Active Protocol: Document 05/05/18 10:37 LRN (Rec: 05/05/18 11:08 LRN [id number]) Current Condition History of Current Condition Onset Date Ongoing for 3 yrs., but recently encouraged by friend to have PT Current Complaints Feeling of falling out w/heavy work & bladder control px 1st in the AM. History of Current Condition Pt has history of cysts in the uterus. She feels the cysts are making her urinate more and putting pressure on her PF causing discomfort. When doing heavy work or lifting she reports pain in uterus floor. States she feels like it is going to fall out. She also states if she does not wake up once a night to urinate then first thing in the morning she will sometimes have urinary leakage as she heads to the toilet. Prior Treatments and Tests Pt states MRI & Ultrasound has shown she has uterine cysts. Future Testing and Treatments Planned None Treatment Goals Patient/Caregiver Goals Pt goal is to learn and ex that would help with pelvic floor pain and leakage. Prior Functional Status Baseline Function- ADL's Independent Baseline Function- Mobility Independent Baseline Function- Recreation/Hobbies Walks 3 miles 3x/week (3 mph) Current Functional Impairments (Reported) Functional Limitations- ADL's Increased toileting of 10x/day . Slow urinary stream and a feeling of the bladder being full after urinating. Running water trigger causing urge to urinate. Functional Limitations- Mobility/Gait Urinary leakage first in the morning if she sleeps through the night. Personal Factors Other Personal Factors That May Effect Rapid heart rate Therapy/Recovery R Gluteus Minimus tear PT-OP-T Assessment and Plan Start: 05/02/18 17:53 Freq: Status: Active Protocol: Document 11/24/18 08:37 LRN (Rec: 11/24/18 08:39 LRN [id number]) Physical Therapy Assessment Progress Towards Goals Progress Comments Comments as of 07/31/18: 1. PF strength: Ongoing assessment is needed to determine if pt is performing a proper PF contraction and if strength is improved from 0/5 . (07/11/18): No c/o PF pain. 2. Weakness of Endurance ( long holds) not assessed. 3. PF Awareness (07/11/18): Pt is learning to assist PF with deep breathing. Use of accessory muscles to perform a PF contraction was not assessed. 4. HEP: progressing Assessment Summary Assessment Pt failed to show for her last 4 appointments and was last seen 07/31/18. No further therapy planned. Physical Therapy Plan Discharge Physical Therapy Discharge Reasons No Longer Attending PT Discharge Comments Pt did not complete her rehabilitation program. Thank you for your referral.
== END 2018-12-08 12:37 ==
LOC: PHYS 09:45
PROVIDERS: PCP Family Medicine; Visit Provider Specialist
DX: G62.89 Other specified polyneuropathies (principal)
CPT/HCPCS: 97110; 97140; 97161; 97535

== ENCOUNTER → 2018-08-01 14:43 | Outpatient (CLI) | payer MEDICARE, OTHER, SELFPAY ==
--- NOTE | 2018-08-01 | PATH_ITS ---
Note [facility] Accession Number: [id number] TESTS RESULT FLAG UNITS REF RANGE LAB Clinician Provided Cytology Information No. of containers..01 ThinPrep Vial No. of containers..06 Previously Prepared Cytology Slide 01 L Thyroid Inferior Pole DIAGNOSIS: 02 LEFT THYROID, INFERIOR POLE: [place] CATEGORY I. NONDIAGNOSTIC: VIRTUALLY ACELLULAR SPECIMEN. COMMENT Only a few rare groups of follicular cells are present (less than 6), which does not meet the criteria for adequacy. The accompanying RNA Vial can be sent for ThyGenX/ThyraMIR molecular testing, upon request, if clinically indicated. Pathologist ICD10: 02 E04.1 01 Bx in 2017 (Neg). 02 Brenda Pope MD, Pathologist NPI- [id number] Yamil Davison, Seed Analysis Laboratory Assistant ([facility]) 01 30 CC, PINK, CLEAR Also received 8 alcohol fixed and 8 quick stained slides, and 1 RNA vial. /HKH FLAG LEGEND: L-Low Normal,H-High Normal,LL-Alert Low,HH-Alert High <-Panic Low,>-Panic High,A-Abnormal,AA-Critical Abnormal Performed at: 01 =Z [facility] [address], [place] [address] Ryland Kwan MD, 02 LWA [facility] [address] [place] [id number] Brenda Pope MD, Performed at: [address] [facility] [place], [place], [place] [id number] MD Ryland Kwan MD Phone: [phone]
--- NOTE | 2018-08-01 | DI.US.S_ITS ---
PROCEDURE: US FINE NEEDLE ASPIRATION INDICATIONS: Nontoxic multinodular goiter TECHNIQUE: The indications, alternatives, benefits, risks, and complications of the procedure were explained to the patient. Written informed consent was obtained and placed in the chart. The thyroid region was examined sonographically and a site was chosen for ultrasound guided percutaneous sampling. The skin was prepared and draped in the usual fashion, and anesthetized with 1% lidocaine infiltrated from the skin down to the thyroid gland. Multiple passes were then performed, with contents emptied into an appropriate pathology specimen container. A bandage was applied to the area of access at completion of the study. COMPARISON: [facility], US, US THYROID, 07/18/2018, 14:41. [facility], US, US FINE NEEDLE ASPIRATION, 08/15/2017, 13:55. FINDINGS: Location(s) of lesion(s) sampled: Dominant nodule in the inferior left thyroid lobe [place]: 25 gauge hypodermic needles. Number of passes: 9 Medications: 1% lidocaine for local anaesthesia. Complications: None. IMPRESSION: 1. Successful ultrasound-guided thyroid nodule fine needle aspiration, with cytology results pending. Please see chart below for management recommendations based on cytology results. 2. Biopsy of nodule #4 (in the superior left thyroid lobe) was requested by the ordering physician. This nodule is not biopsied at this time (not recommended by the [place] [employer] or ACR) because of its small size. This nodule is seen adjacent to the left carotid artery. Continued ultrasound surveillance is recommended. This was explained to the patient. [facility] ReportingRecommendationsNon-diagnostic* Repeat US-guided FNA, with on-site cytology evaluation if possible. * Repeated non-diagnostic nodules without high suspicion US features: close observation vs surgical consult. * Consider surgery if nodule has high suspicion US features, grows >20% in 2 dimensions on followup, or patient has clinical risk factors for malignancy. Benign* If nodule has high suspicion US features: repeat US and FNA within 12 months. * If nodule has low to intermediate suspicion US features: repeat US at 12-24 months. If nodule grows (20% increase in at least 2 dimensions, with minimal increase of 2 mm or >50% change in volume), or development of new suspicious US features, then repeat FNA or continue followup. * If nodule has very low suspicion US features: followup US at >24 months. Atypia of undetermined significance, follicular lesion of undetermined significanceRepeat FNA, molecular testing, followup US, or surgical consult.Follicular neoplasm, suspicious for follicular neoplasmSurgical consult; also consider molecular testing. Suspicious for malignancySurgical consult.MalignantSurgical consult. Dictated by: Tomer Garcia M.D. on 08/01/2018 at 17:49 Approved by: Tomer Garcia M.D. on 08/01/2018 at 17:54
== END ==
PROVIDERS: Family Provider Otolaryngology; PCP Family Medicine; Visit Provider Family Medicine
DX: E04.2 Nontoxic multinodular goiter (principal)
CPT/HCPCS: 10005

== ENCOUNTER → 2019-10-12 09:18 | Outpatient (CLI) | payer MEDICARE, OTHER, SELFPAY ==
--- NOTE | 2019-10-12 | DI.MG.S_ITS ---
BILATERAL DIGITAL SCREENING MAMMOGRAM 3D/2D WITH CAD: 10/12/2019 CLINICAL: Routine screening. Family history of breast cancer. Comparison is made to exams dated: 06/16/2018 mammogram, 06/15/2017 mammogram, 12/20/2016 mammogram, 12/04/2015 mammogram, 06/02/2015 mammogram, and 06/11/2015 mammogram - [facility]. The tissue of both breasts is heterogeneously dense. This may lower the sensitivity of mammography. Current study was also evaluated with a Computer Aided Detection (CAD) system. There are benign vascular calcifications in the right breast. No significant masses, calcifications, or other findings are seen in either breast. There has been no significant interval change. IMPRESSION: BENIGN There is no mammographic evidence of malignancy. A 1 year screening mammogram is recommended. This exam was interpreted at Station ID: [id number]. NOTE: For mammograms, a report in lay terms will be sent to the patient. Approximately 15% of breast malignancies will not be visualized mammographically. In the management of a palpable breast mass, a negative mammogram must not discourage biopsy of a clinically suspicious lesion. Electronically Signed By: Earnest casillas/ranjan:10/12/2019 10:02:40 letter sent: Normal Exam ACR BI-RADS Category 2: Benign Finding(s) [id number]
== END ==
PROVIDERS: Family Provider Otolaryngology; PCP Family Medicine; Referring Provider Family Medicine; Visit Provider Family Medicine
DX: Z12.31 Encounter for screening mammogram for malignant neoplasm of breast (principal); Z80.3 Family history of malignant neoplasm of breast
CPT/HCPCS: 77063; 77067